=== PATIENT | female | born 1950 | race Two or more races ===

== ENCOUNTER 2017-03-22 06:43 | Outpatient (CLI) | payer MEDICARE, OTHER ==
[2017-03-22 08:17] LABS: BASOPHILS % (AUTO) 1.5 % (0.0-2.0); EOSINOPHILS % (AUTO) 1.6 % (0.0-3.0); LYMPHOCYTES % (AUTO) 28.4 % (20.0-45.0); MEAN CORPUSCULAR HEMOGLOBIN 30.4 PG (27.0-31.0); MEAN CORPUSCULAR HGB CONC 32.4 G/DL (32.0-36.0); MEAN CORPUSCULAR VOLUME 94 FL (80-99); MEAN PLATELET VOLUME 7.4 FL (6.5-10.1); MONOCYTES % (AUTO) 7.6 % (1.0-10.0); NEUTROPHILS % (AUTO) 60.9 % (45.0-75.0); PLATELET COUNT 253 K/UL (150-450); RED BLOOD COUNT 5.75 M/UL (4.20-5.40); RED CELL DISTRIBUTION WIDTH 12.7 % (11.6-14.8); WHITE BLOOD COUNT 7.2 K/UL (4.8-10.8)
[2017-03-22 08:23] LABS: APPEARANCE,URINE CLEAR; KETONES,URINE NEGATIVE (NEGATIVE); LEUKOCYTE ESTERASE ,URINE NEGATIVE (NEGATIVE); NITRITE,URINE NEGATIVE (NEGATIVE); PH,URINE 5 (4.5-8.0); PROTEIN,URINE NEGATIVE (NEGATIVE); UROBILINOGEN,URINE NORMAL MG/DL (0.0-1.0)
[2017-03-22 08:29] LABS: BACTERIA,URINE FEW /HPF; MUCUS,URINE FEW /LPF (NONE/OCC); RBC,URINE 0-2 /HPF (0 - 2); SQUAMOUS EPITHELIAL CELL,UR FEW /LPF (NONE/OCC); WBC,URINE 0-2 /HPF (0 - 2)
[2017-03-22 08:44] LABS: ALANINE AMINOTRANSFERASE 19 U/L (3-33); ALBUMIN/GLOBULIN RATIO 1.5 (1.0-2.7); ANION GAP 13 (5-15); ASPARTATE AMINO TRANSFERASE 20 U/L (5-40); CALCIUM 9.6 mg/dL (8.6-10.2); CARBON DIOXIDE 26 mEQ/L (20-30); CHLORIDE 101 mEQ/L (98-107); CHOLESTEROL 188 mg/dL (< 200); CHOLESTEROL/HDL RATIO 3.2 (3.3-4.4); CREATININE 0.6 mg/dL (0.5-0.9); CRP QUANT < 0.3 mg/dL (< 0.5); GLOMERULAR FILTRATION RATE > 60 mL/min (>60); HEMOLYSIS 9; LDL CHOLESTEROL (CALC.) 105 mg/dL (60-99); POTASSIUM 4.3 mEQ/L (3.4-4.9); SODIUM 140 mEQ/L (135-145)
[2017-03-22 08:47] LABS: HEMOGLOBIN A1C 5.7 % (< 6.0)
[2017-03-22 09:12] LABS: URIC ACID 5.3 mg/dL (3.0-7.5)
[2017-03-22 09:24] LABS: ERYTHROCYTE SEDIMENTATION RATE 5 MM/HR (0-30)
== END 2017-03-22 08:43 | disposition home or self-care (01) ==
LOC: LAB 06:43 → EDBD 06:43 → LAB 08:43
DX: R03.0 Elevated blood-pressure reading, without diagnosis of hypertension (principal); E34.9 Endocrine disorder, unspecified
CPT/HCPCS: 36415; 80053; 80061; 81001; 82306; 83036; 84436; 84443; 84550; 85025; 85651; 86140

== ENCOUNTER → 2019-02-10 | Outpatient (CLI) | payer MEDICARE, MEDICAID ==
[2019-02-10 13:08] LABS: ANION GAP 9 mmol/L (5-15); BLOOD UREA NITROGEN 18 mg/dL (7-18); CALCIUM 9.4 MG/DL (8.5-10.1); CARBON DIOXIDE 32 MMOL/L (21-32); CHLORIDE 102 MMOL/L (98-107); CREATININE 0.6 MG/DL (0.55-1.30); POTASSIUM 4.2 MMOL/L (3.5-5.1); SODIUM 143 MMOL/L (136-145)
--- NOTE | 2019-02-10 16:13 | Diagnostic Imaging Report ---
Clinical Indication: Abdominal pain Technique: Patient given oral contrast. IV administration nonionic contrast. Venous phase spiral acquisition obtained through the abdomen and pelvis. Multiplanar reconstructions were generated. Total dose length product 839 mGycm. CTDIvol(s) 18.6 mGy. Dose reduction achieved using automated exposure control Comparison: none Findings: There is a midline incision. Just above the level of the umbilicus an just lateral to midline, there is a ventral hernia through the rectus tendon which contains a knuckle of transverse colon. The cecum is somewhat prominent in caliber. The remainder of the colon proximal to the hernia is not dilated. There is very slight infiltration of the fat within the hernia sac, but no colon wall dilatation to suggest strangulation. In the cecum is located high in the abdomen, anterior to the gallbladder. A few tiny ventral hernias are seen cephalad to the larger hernia and contain only fat. One or more tiny fat-containing ventral hernias are also seen caudad to the larger hernia and contain only fat. The inferior rectus tendon is diastatic without marty herniation. No small bowel distention. Contrast is seen throughout the entirety of the small bowel and reaches the cecum. Some small bowel is interposed between the abdominal wall and the anterior inferior right hepatic lobe. There are equivocal small colonic diverticula. No evidence of diverticulitis. The appendix is not visualized, reportedly surgically absent. Somewhat prominent nodes are seen in the pericecal mesenteric fat. The distal esophagus, stomach, duodenum are unremarkable. There is suggestion of thickening of the perineal soft tissue posterior to the anus. This could in part be artifactual as there is a pronounced posterior orientation of the canal. There is also skin thickening of the retrococcygeal skin and infiltration of the subcutaneous fat. No evidence of osseous erosion. The liver, gallbladder, bile ducts, pancreas, adrenals, spleen are all unremarkable. The kidneys demonstrate bilateral parapelvic cysts. No retroperitoneal or mesenteric mass or adenopathy. No pelvic mass or adenopathy. Unremarkable aorta and inferior vena cava. There is marked fusiform ectasia of the celiac axis just beyond its origin. It measures up to 16 mm diameter. This may be due to is poststenotic dilatation as there is evidence of some origin stenosis. Linear bands of atelectasis and/or scarring are seen at the lung bases. There are mild degenerative changes of the lumbosacral spine. Impression: Right-sided para midline ventral hernia containing a knuckle of the transverse colon. No definite evidence of strangulation or obstruction Other small ventral hernia is noted, contain only fat. There is also diastasis of the inferior rectus tendon without marty herniation Nonvisualized appendix, reportedly surgically absent Possible perianal soft tissue thickening, if real could indicate scarring or inflammatory changes. Correlate with clinical findings Possible mild retrococcygeal decubitus changes. Correlate with clinical findings Colonic diverticulosis. No evidence of diverticulitis Marked ectasia of the celiac axis. Suspect on the basis of poststenotic dilatation related to origin stenosis Other findings as noted, including degenerative lumbosacral spondylosis, basilar pulmonary parenchymal scarring or atelectatic changes Findings discussed by phone with Dr. Allen at the time of interpretation The CT scanner at [facility] is accredited by the [employer] and the scans are performed using protocols designed to limit radiation exposure to as low as reasonably achievable to attain images of sufficient resolution adequate for diagnostic evaluation.
== END | disposition home or self-care (01) ==
LOC: CAT 11:55
DX: K46.9 Unspecified abdominal hernia without obstruction or gangrene (principal); K57.90 Diverticulosis of intestine, part unspecified, without perforation or abscess without bleeding; M47.9 Spondylosis, unspecified
CPT/HCPCS: 36415; 74177; 80048; Q9967

== ENCOUNTER 2019-03-14 09:23 | Day surgery (SDC) | payer MEDICARE, MEDICAID ==
[~2019-03-14] VITALS: Ht 157.5 cm; Wt 77.1 kg
[2019-03-14] VITALS (12 sets, daily range): BP systolic 104–160; BP diastolic 75–119
[2019-03-14] MEDS ORDERED: GABAPENTIN300 MG ORAL (10:08)
[2019-03-14] MEDS ORDERED: CRESTOR10 M2 ORAL (10:08)
[2019-03-14] MEDS ORDERED: Bacitracin 50000 Units Vial ONE (10:14)
[2019-03-14] MEDS ORDERED: fentaNYL 100 mcg/2 mL IV ONE (10:18)
[2019-03-14] MEDS ORDERED: Zemuron 50mg/5ml Inj IV ONE (10:25)
[2019-03-14] MEDS ORDERED: Succinylcholine 20mg/ml 10ml vial ONE (10:25)
--- NOTE | 2019-03-14 10:25 | Pre-Procedure Note/Attestation ---
Pre-Procedure Note/Attestation Complete Prior to Procedure Planned Procedure: not applicable Procedure Narrative: laparoscopic possible open ventral hernia repair with mesh Indications for Procedure Pre-Operative Diagnosis: incisional ventral hernia Attestation I attest that I discussed the nature of the procedure; its benefits; risks and complications; and alternatives (and the risks and benefits of such alternatives ), prior to the procedure, with the patient (or the patient's legal dental sales representative). I attest that, if there was a reasonable possibility of needing a blood transfusion, the patient (or the patient's legal dental sales representative) was given the [facility] standardized written summary, pursuant to the [place] Blood Safety Act ([place] Health and Safety Code # 1645, as amended). I attest that I re-evaluated the patient just prior to the surgery and that there has been no change in the patient's H&P, except as documented below: Toribio Allen Mar 14, 2019 10:25
[2019-03-14] MEDS ORDERED: Propofol 200mg/20ml IV ONE ×2 (10:30→13:04)
[2019-03-14] MEDS ORDERED: Lidocaine 1% MPF 10mg/ml 5ml ONE (10:30)
[2019-03-14] MEDS ORDERED: ceFAZolin sod 2 GM in D5W 110 ML IV ONE (10:30)
[2019-03-14] MEDS ORDERED: Sterile Water Irrig 1000ml IRRIG ONE (11:00)
[2019-03-14] MEDS ORDERED: NS Irrig 2000ml IRRIG ONE (11:00)
[2019-03-14] MEDS ORDERED: Metoprolol 5mg/5ml Inj ONE (11:00)
[2019-03-14] MEDS ORDERED: Ketorolac 30mg Inj ONE (11:00)
[2019-03-14] MEDS ORDERED: NS Irrig 1000ml ONE (11:00)
[2019-03-14] MEDS ORDERED: NS Irrig 4000ml IRRIG ONE (11:02)
[2019-03-14] MEDS ORDERED: LR 1000ml 1,000 ML IVLG SCH (11:38)
--- NOTE | 2019-03-14 11:38 | Anethesia Preoperative Eval ---
Anesthesia Pre-op PMH/ROS General Date of Evaluation: Mar 14, 2019 Time of Evaluation: 10:40 Anesthesiologist: Tobin ASA Score: ASA 2 Mallampati Score Class I : Soft palate, uvula, fauces, pillars visible Class II: Soft palate, uvula, fauces visible Class III: Soft palate, base of uvula visible Class IV: Only hard plate visible Mallampati Classification: Class II Surgeon: Danya Diagnosis: Ventral hernia Surgical Procedure: Ventral hernia repair Anesthesia History: none Family History: no anesthesia problems Allergies: Coded Allergies: No Known Allergies (Unverified , 03/14/19) Medications: see eMAR Patient NPO?: Yes Past Medical History Cardiovascular: Reports: HTN - Borderline; Denies: CAD, NH, valve dz, arrhythmia, other Pulmonary: Denies: asthma, COPD, MAY, other Gastrointestinal/Genitourinary: Reports: GERD; Denies: CRI, ESRD, other Neurologic/Psychiatric: Reports: depression/anxiety, other; Denies: dementia, CVA, TIA Endocrine: Reports: DM - borderline; Denies: hypothyroidism, steroids, other HEENT: Reports: cataract (L), cataract (R); Denies: glaucoma, PALA (L), PALA (R), other Hematology/Immune: Denies: anemia, DVT, bleeding disorder, other Musculoskeletal/Integumentary: Denies: OA, RA, DJD, DDD, edema, other Other: other PMH Narrative: as above PSxH Narrative: x 3, appendectomy and repair of VC rupture Anesthesia Pre-op Phys. Exam Physician Exam Last Vital Signs Date Time Temp Pulse Resp B/P (MAP) Pulse Ox O2 Delivery O2 Flow Rate FiO2 03/14/19 10:11 Room Air 03/14/19 09:53 98.2 89 18 140/109 96 Constitutional: NAD Neurologic: CN 2-12 intact Cardiovascular: RRR, no M/R/G Respiratory: CTA Gastrointestinal: other - obesity Airway Exam Mallampati Score: Class II MO: limited Neck: short ROM: limited Teeth: intact Dentures: no upper, no lower Anesthesia Pre-op A/P Labs see chart Risk Assessment & Plan Assessment: ASA 2 Plan: GA with ETT Status Change Before Surgery: No Pre-Antibiotics Drug: Ancef 1gr. Given Within 1 Hr of Incision: Yes Time Given: 11:10 Vakulenko,Jarrett MD Mar 14, 2019 11:38
[2019-03-14] MEDS ORDERED: Morphine Sulfate 10mg/ml Inj ONE (11:44)
[2019-03-14] MEDS ORDERED: Glycopyrrolate 0.2mg/ml 1ml Vial ONE (11:45)
[2019-03-14] MEDS ORDERED: Ketorolac 30mg Inj IV PRN (11:45)
[2019-03-14] MEDS ORDERED: Hydromorphone 0.5mg/0.5ml inj IVP PRN (11:45)
[2019-03-14] MEDS ORDERED: Sodium Chloride 10ml vial INJ ONE (11:45)
[2019-03-14] MEDS ORDERED: Labetalol 5mg/ml 20ml vial IV ONE (13:32)
[2019-03-14] MEDS ORDERED: Labetalol 5mg/ml 20ml vial IV SCH (13:38)
--- NOTE | 2019-03-14 13:39 | Immediate Post-Op Evaluation ---
Immediate Post-Op Evalulation Immediate Post-Op Evalulation Procedure: Laparoscopic ventral hernia repair Date of Evaluation: Mar 14, 2019 Time of Evaluation: 13:38 IV Fluids: 1000 Blood Products: none Estimated Blood Loss: 100 Urinary Output: none Blood Pressure Systolic: 123 Blood Pressure Diastolic: 88 Pulse Rate: 86 Respiratory Rate: 22 O2 Sat by Pulse Oximetry: 99 Temperature (Fahrenheit): 97.8 Pain Score (1-10): 2 Nausea: No Vomiting: No Complications none Patient Status: reacts, patent, extubated, none Hydration Status: adequate Jarrett Rudd MD Mar 14, 2019 13:39
--- NOTE | 2019-03-14 14:17 | 48 Hour Post Anesthesia Eval ---
Post Anesthesia Evaluation Procedure: Laparoscopic ventral hernia repair Date of Evaluation: Mar 14, 2019 Time of Evaluation: 14:16 Blood Pressure Systolic: 112 0: 82 Pulse Rate: 76 Respiratory Rate: 20 Temperature (Fahrenheit): 97.8 O2 Sat by Pulse Oximetry: 98 Airway: patent Nausea: No Vomiting: No Pain Intensity: 2 Hydration Status: adequate Cardiopulmonary Status: stable Mental Status/LOC: patient returned to baseline Follow-up Care/Observations: n/a Post-Anesthesia Complications: none Follow-up care needed: ready to discharge Jarrett Rudd MD Mar 14, 2019 14:17
--- NOTE | 2019-03-14 15:31 | Brief Operative Note ---
Immediate Post Operative Note Operative Note Pre-op Diagnosis: incisional ventral hernia Procedure: laparoscopic ventral hernia repair with mesh Post-op Diagnosis: same as pre-op Surgeon: jena Anesthesiologist: alcon Anesthesia: general, local Specimen: yes Complications: none Condition: stable Fluids: see records Estimated Blood Loss: minimal Implant(s) used?: Yes Toribio Allen Mar 14, 2019 15:31
[2019-03-14] MEDS ORDERED: Tylenol #3 tab (300mg/30mg) ORAL PRN (15:45)
[2019-03-14] MEDS ORDERED: HYDROcodone/Acetamin 5/325 tab ORAL PRN (15:45)
[2019-03-14] MEDS ORDERED: HYDROmorphone 1mg/ml Carpuject SUBQ PRN (15:45)
[2019-03-14] MEDS ORDERED: D5 1/2NS 1,000 ML IV SCH (17:00)
--- NOTE | 2019-03-14 19:00 | Operative Note - Dictated ---
DATE OF OPERATION: 03/14/2019 PREOPERATIVE DIAGNOSIS: Incisional ventral hernia. POSTOPERATIVE DIAGNOSIS: Multiple incisional ventral hernias with significant adhesions and "Turkish cheese" abdominal wall. OPERATION PERFORMED: 1. Laparoscopic ventral incisional hernia repair with mesh. 2. Extensive laparoscopic lysis of adhesions. 3. Right rectus musculocutaneous flap. 4. Localized adjacent tissue transfer for closure of hernia defect. ATTENDING SURGEON: Toribio Allen M.D. TRAFFIC RATE COMPUTER: None. ANESTHESIOLOGIST: Jarrett Rudd M.D. ANESTHESIA: General BUSINESS ASSOCIATE plus local. ESTIMATED BLOOD LOSS: 20 mL. IV FLUIDS: Please see anesthesia records. COMPLICATIONS: None. DRAINS: None. SPECIMENS: Hernia sac sent to pathology for review. IMPLANTS: Mosaic 8 inch x 12 inch laparoscopic mesh, lot number #[id number], reference number #[id number], expiration 05/19/2021. WOUND CLASSIFICATION: Class I. COUNTS: Sponge and needle counts correct x2. ANTIBIOTICS: 2 g Ancef IV given 1 hour prior to cut time. INDICATIONS FOR PROCEDURE: This is a 69-year-old female who was referred to myself by Dr. Nora Rose for evaluation of an incisional ventral hernia that was causing discomfort. 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 She had healed well from that and has been doing okay, but has developed a ventral hernia, which was causing discomfort. The ventral incisional hernia was located above and right lateral to the umbilicus around the area of the midline incision and defect is palpable approximately 3 fingerbreadths in size with reducible bowel contents being identified. The remainder of the abdomen has a midline incision, which is well healed, but the other soft areas noted. As a part of workup, the patient had preoperative clearance by her primary care physician as well as a CT scan, which identified a ventral hernia through the rectus tendon with knuckled transverse colon as well as other small fat containing ventral hernias and an inferior rectus tendon diastasis without marty herniation. These findings were all discussed with the patient in detail and interventions, including surgical and nonsurgical were evaluated and the patient stated it does make her uncomfortable and there are concerns given the size and the bowel in the hernia for incarceration and potential strangulation. Therefore after risks, benefits, and alternatives were discussed, the patient decided to proceed with surgery. Planned surgery is laparoscopic possible open ventral hernia repair with mesh. I have discussed with the patient the potential necessity for both laparoscopic and utilizing open technique as well for reapproximation of large ventral defect as well as mesh utilization of potential flaps if necessary. The patient expressed understanding. Consent was obtained. OPERATIVE NOTE: The patient was taken to the operating room and placed on the operating table in supine position with bilateral arms out. All bony prominences well padded. SCDs were placed. Preoperative time-out taken to identify the patient, procedure, operative staff, and surgical staff. 2 g Ancef IV were given one hour prior to cut time. General anesthesia was induced and the patient was intubated. The abdomen was clipped, prepped, draped in standard surgical fashion. A supraumbilical incision in the midline was made using the patient's prior midline incision. Incision was carried down through the subcutaneous tissue to the fascia where the medial aspect of the incisional hernia defect was noted. A hernia sac was identified. The hernia sac was incised. The abdomen was entered without complication. A 12 mm Kristine trocar was inserted and the abdomen was insufflated to 12 to 15 mmHg. The patient tolerated the insufflation well. Upon insufflating, the diastasis and the ventral hernia was noted. Laparoscope was inserted and the abdomen was inspected. The patient had a large ventral hernia defect with a large sac identified anticipated lateral to the midline on the right side above the umbilicus. There was hernia sac identified in this defect in the rectus tendon. In the remaining of the abdomen in the right upper quadrant, there were not any significant adhesions fortunately. The liver and gallbladder looked otherwise normal. There were adhesions of the omentum throughout the midline from the falciform ligament down to the lower portion of the midline incision. Secondary trocars were placed including beginning with a 5 mm right lower abdomen followed by a 5 mm right upper abdomen followed by a 5 mm left mid abdomen trocar. All trocars placed under direct visualization without complication. Laparoscopic graspers and scissors were used and extensive lysis of adhesions were performed until all the omentum was dissected from the abdominal wall. Once this was completed, a large diastasis was noted at the inferior portion of the midline and multiple Turkish cheese ventral hernias were identified around the area in the midline as well as a large hernia noted prior. Around the superior portion of the incision, there were some small hernias noted as well. The remainder of the abdomen was otherwise unremarkable. At this time, given Turkish cheese abdomen and these operative findings, decision was made to place a large mosaic double-sided laparoscopic mesh. Furthermore, given the size of the defect of the larger hernia in the right lateral rectus, decision was made for musculocutaneous rectus flap to help with closure. At this time, the midline incision was extended and the hernia sac was circumferentially excised out. Hernia sac was sent to pathology for review. The hernia sac was in subcutaneous tissue above the rectus and extending laterally, inferiorly, and superiorly. Once it was excised, the defect remaining needs to be closed as well as the rectus defect. Laterally, a slit was made into the rectus sheath for release followed by inferior release and then slow reapproximation of the rectus muscle as it was mobilized superiorly including the rectus sheath that was freed. I was able to reapproximate the two ends without significant tension utilizing this flap portion of the rectus muscle and tissue. The reapproximation of the rectus fascia and muscle was completed with 2-0 Prolene interrupted sutures. Good repair was identified without tension and satisfactory without any defects. At this time, there was a large defect left in the subcutaneous tissue given the size and location of the prior hernia and sac. At this time, adjacent tissue transfer utilizing the subcutaneous tissue inferiorly was performed where the tissue was slowly mobilized from the rectus sheath and keeping the line with its feeding vessels was mobilized superiorly to cover both the repaired hernia defect as well as the defect. Once this was complete, 3-0 Vicryl sutures were used to tack the mobilized tissue in place. At this time, the skin incision was reapproximated in a two-layer fashion beginning with 3-0 Vicryl dermal sutures followed by 4-0 Monocryl subcuticular interrupted sutures. This incision and wound was closed. A mosaic large rectangular mesh was placed prior to the abdomen with the markings to identify the appropriate positioning right side up and placement. The abdomen was re-insufflated once the hernia defect was reapproximated and inspected, noted good results without complications. At this time, the hernia mesh that was placed prior to the abdomen was positioned appropriately and tacked to the anterior abdominal wall using absorbable Protack sutures. Appropriate positioning of the mesh was noted covering all the hernia defects superiorly, inferiorly, and laterally with good overlap. At this time, we began the conclusion of the procedure. The abdomen was desufflated. Mesh noted to be in good positioning. Pictures were taken. The secondary trocars removed under direct visualization without complication. The remaining 5 mm trocar site incisions were reapproximated using 4-0 Monocryl subcuticular interrupted sutures. The wounds were irrigated, cleansed, and skin glue and Steri-Strips were applied. The patient tolerated the procedure well, was extubated, and taken to the postanesthetic care unit in a stable condition. The patient was seen in the postoperative care unit upon discharge. States she is feeling well and pain well controlled. The patient will be discharged home. She will follow up as outpatient as scheduled. Toribio Allen M.D. DR: JUSTIN JOB#: [id number] CC:
== END 2019-03-14 16:30 | disposition home or self-care (01) ==
LOC: SUR 09:23
DX: K43.0 Incisional hernia with obstruction, without gangrene (principal); I10 Essential (primary) hypertension; K21.9 Gastro-esophageal reflux disease without esophagitis; E11.9 Type 2 diabetes mellitus without complications; F32.9 Major depressive disorder, single episode, unspecified; F41.9 Anxiety disorder, unspecified; Z90.89 Acquired absence of other organs; E66.9 Obesity, unspecified; Z68.31 Body mass index [BMI] 31.0-31.9, adult
CPT/HCPCS: 14000; 49655; 82962; J0330; J0690; J1885; J2270; J2405; J2704; J3010; 94003; 94150

== ENCOUNTER → 2019-04-11 | Outpatient (CLI) | payer MEDICARE, MEDICAID ==
[~2019-04-11] MED LIST: CRESTOR10 M2 ORAL; GABAPENTIN300 MG ORAL
--- NOTE | 2019-04-11 16:02 | Diagnostic Imaging Report ---
ARTERIAL DOPPLER STUDY - RIGHT LOWER EXTREMITY INDICATION: Right leg ischemia. TECHNIQUE: Multiplanar ultrasound examination of the right lower extremity with greyscale and doppler imaging. COMPARISON: CT abdomen and pelvis dated 02/10/2019 FINDINGS: Right common iliac, right superficial femoral, right popliteal, right posterior tibial, right peroneal, and right dorsalis pedis arteries are patent with triphasic waveforms. At the proximal segment of the posterior tibial artery, there is calcified plaque leading to mild (<50%) stenosis. Resting ankle-brachial index for the right leg is 1.0. IMPRESSION: Patent right lower extremity arteries with appropriate waveforms; no hemodynamically significant (>50%) stenosis.
== END | disposition home or self-care (01) ==
LOC: VAS 13:57
DX: I99.8 Other disorder of circulatory system (principal)
CPT/HCPCS: 93926

== ENCOUNTER 2019-09-22 20:34 | Inpatient (IN) | payer MEDICARE, MEDICAID ==
[~2019-09-22] VITALS: Ht 165.1 cm; Wt 76.2 kg
--- NOTE | 2019-09-22 20:45 | NUR ---
ED Nurse Note: PT WALKED IN TO ED WITH TREMOR AND PALENESS. PT STATES SOB WITH ELEVATED BP SINCE 09/19. PT STATES BP AT HOME WAS 200/130. BP AT TRIAGE 137/123. PT HAS DISTENDED RT ABD WITH SURGICAL SCAR. PT C/O BLOATED ABD AND NAUSEA. PT VOMITTED CLEAR EMESIS AT THE BEDSIDE. ERMD ATBEDSIDE, FAMILY AT BEDSIDE. WILL CONTINUE TO MONITOR PATIENT.
[2019-09-22 21:00] VITALS: BP 179/105
--- NOTE | 2019-09-22 21:05 | Emergency Room Report ---
History of Present Illness General Chief Complaint: Dyspnea/Respdistress Source: Patient, Medical Record Present Illness HPI This is a 69-year-old female with multiple medical problem. She has a history of high blood pressure, abdominal aneurysm repair and hernia repair. She presents with chief complaint of nausea vomiting. Onset for the last 3 to 4 days. I will keep anything down. Treichlers anxious. Treichlers short of breath. No diarrhea. Also she said her hernia is getting much bigger. Cramping pain. 5 out of 10. She said her short of breath because she felt anxious. No chest pain. Blood pressure was elevated at home. Systolic was over 200. Allergies: Coded Allergies: No Known Allergies (Unverified , 03/14/19) Patient History Past Medical History: see triage record, old chart reviewed, HTN Past Surgical History: other Pertinent Family History: none Social History: Denies: smoking Now: No Immunizations: other Reviewed Nursing Documentation: PMH: Agreed; PSxH: Agreed Nursing Documentation-PMH Hx Cardiac Problems: Yes Hx Cancer: No Hx Gastrointestinal Problems: Yes - GI surgery February 2019 Hx Neurological Problems: Yes Hx Peripheral Neuropathy: Yes Review of Systems Eye: Denies: eye pain, blurred vision ENT: Denies: ear pain, nose congestion, throat swelling Respiratory: Reports: shortness of breath; Denies: cough Cardiovascular: Denies: chest pain, palpitations Gastrointestinal: Reports: abdominal pain, nausea, vomiting; Denies: diarrhea Musculoskeletal: Denies: back pain, joint pain Skin: Denies: rash Neurological: Denies: headache, numbness Endocrine: Denies: increased thirst, increased urine Hematologic/Lymphatic: Denies: easy bruising All Other Systems: negative except mentioned in HPI Physical Exam Vital Signs Date Time Temp Pulse Resp B/P (MAP) Pulse Ox O2 Delivery O2 Flow Rate FiO2 09/22/19 20:37 97.7 66 13 137/123 (128) 98 Room Air Vitals with high blood pressure Sp02 EP Interpretation: reviewed, normal General Appearance: well appearing, no apparent distress, alert, obese Head: normocephalic, atraumatic Eyes: bilateral eye PERRL, bilateral eye EOMI ENT: hearing grossly normal, normal pharynx Neck: full range of motion, supple, no meningismus Respiratory: chest non-tender, lungs clear, normal breath sounds Cardiovascular #1: regular rate, rhythm, no murmur Gastrointestinal: normal bowel sounds, non tender, no mass, no organomegaly, no bruit, non-distended, other - Large ventral hernia. Reducible Musculoskeletal: back normal, normal range of motion, gait/station normal Psychiatric: mood/affect normal Medical Decision Making Diagnostic Impression: Primary Impression: SBO (small bowel obstruction) Additional Impressions: Hypertension Qualified Codes: I10 - Essential (primary) hypertension Ventral hernia Qualified Codes: K43.6 - Other and unspecified ventral hernia with obstruction , without gangrene Stress reaction ER Course This patient presents with abdominal pain and nausea and vomiting. She has a large ventral hernia that is causing a small bowel obstruction. Is not incarcerated. Was able to reduce it. NG tube placed. IV fluid given. Her blood pressure is elevated because she is unable to take her medication. IV medication given here. Patient is stable for admission here versus transfer. Patient will be admitted here. I discussed the case with Dr. Rose who will admit. Dr. Allen will be surgical consult. EKG Diagnostic Results Rate: normal Rhythm: NSR ST Segments: no acute changes Rhythm Strip Diag. Results Rate: 72 Rhythm: NSR, no PVC's, no ectopy Chest X-Ray Diagnostic Results Chest X-Ray Diagnostic Results : Chest X-Ray Ordered: Yes # of Views/Limited/Complete: 1 View Indication: Shortness of Breath EP Interpretation: Yes Interpretation: no consolidation, no effusion, no pneumothorax, no acute cardiopulmonary disease Impression: No acute disease Electronically Signed by: Ede Garcia MD CT/MRI/US Diagnostic Results CT/MRI/US Diagnostic Results : Imaging Test Ordered: CT abdomen pelvis Impression Read by radiologist. Small bowel obstruction, transition point within the ventral hernia which contains cecum, ileocecal valve and terminal ileum. Last Vital Signs Date Time Temp Pulse Resp B/P (MAP) Pulse Ox O2 Delivery O2 Flow Rate FiO2 09/22/19 20:37 97.7 66 13 137/123 (128) 98 Room Air Status: improved Disposition: ADMITTED INPATIENT Condition: Serious Ede Garcia MD Sep 22, 2019 21:05
[2019-09-22] MEDS ORDERED: LORazepam Inj 2mg/ml 1ml IV ONE (21:15)
[2019-09-22 21:34] LABS: BASOPHILS % (AUTO) 0.8 % (0.0-2.0); EOSINOPHILS % (AUTO) 0.2 % (0.0-3.0); HEMATOCRIT 54.2 % (37.0-47.0); LYMPHOCYTES % (AUTO) 15.8 % (20.0-45.0); MEAN CORPUSCULAR VOLUME 89 FL (80-99); MONOCYTES % (AUTO) 6.4 % (1.0-10.0); NEUTROPHILS % (AUTO) 76.9 % (45.0-75.0); PLATELET COUNT 295 K/UL (150-450); RED BLOOD COUNT 6.08 M/UL (4.20-5.40); RED CELL DISTRIBUTION WIDTH 12.2 % (11.6-14.8); WHITE BLOOD COUNT 14.1 K/UL (4.8-10.8)
[2019-09-22 21:38] LABS: HEMOGLOBIN 17.5 G/DL (12.0-16.0)
--- NOTE | 2019-09-22 21:48 | NUR ---
ED Nurse Note: pt went for ct via wheelchair accompanied by teradata architect in stable condition.
--- NOTE | 2019-09-22 21:53 | Diagnostic Imaging Report ---
EXAM: XR Chest, 1 View CLINICAL HISTORY: SOB TECHNIQUE: Frontal view of the chest. COMPARISON: No relevant prior studies available. FINDINGS: Lungs: Unremarkable. No consolidation. Pleural space: No pleural effusion. No pneumothorax. Heart: Unremarkable. No cardiomegaly. IMPRESSION: No acute cardiopulmonary abnormality.
[2019-09-22 22:00] LABS: APPEARANCE,URINE SLIGHTLY CLOUDY; BILIRUBIN, URINE NEGATIVE (NEGATIVE); COLOR,URINE AMBER; GLUCOSE, URINE (UA) NEGATIVE (NEGATIVE); KETONES,URINE 3+ (NEGATIVE); LEUKOCYTE ESTERASE ,URINE NEGATIVE (NEGATIVE); NITRITE,URINE NEGATIVE (NEGATIVE); PH,URINE 5 (4.5-8.0); PROTEIN,URINE 2+ (NEGATIVE); UROBILINOGEN,URINE NORMAL MG/DL (0.0-1.0)
--- NOTE | 2019-09-22 22:00 | NUR ---
ED Nurse Note: PT BACK FROM CT VIA WHEELCHAIR ACCOMPANIED BY 1 FISH BAILER IN STABLE CONDITION.
[2019-09-22 22:05] LABS: ANION GAP 17 mmol/L (5-15); BLOOD UREA NITROGEN 25 mg/dL (7-18); CALCIUM 10.1 MG/DL (8.5-10.1); CARBON DIOXIDE 24 MMOL/L (21-32); CHLORIDE 101 MMOL/L (98-107); CREATININE 0.9 MG/DL (0.55-1.30); SODIUM 142 MMOL/L (136-145)
--- NOTE | 2019-09-22 22:09 | Diagnostic Imaging Report ---
EXAM: CT Abdomen and Pelvis Without Intravenous Contrast CLINICAL HISTORY: ABD PAIN TECHNIQUE: Axial computed tomography images of the abdomen and pelvis without intravenous contrast. CTDI is 24.2 mGy and DLP is 1302.9 mGy-cm. One or more of the following dose reduction techniques were used: automated exposure control, adjustment of the mA and/or kV according to patient size, use of iterative reconstruction technique. COMPARISON: CT abdomen pelvis 02/10/2019 FINDINGS: Lung bases: Unremarkable. No mass. No consolidation. ABDOMEN: Liver: Unremarkable. Gallbladder and bile ducts: Unremarkable. No calcified stones. No ductal dilation. Pancreas: Unremarkable. No ductal dilation. Spleen: Unremarkable. No splenomegaly. Adrenals: Unremarkable. No mass. Kidneys and ureters: Unremarkable. No obstructing stones. No hydronephrosis. Stomach and bowel: Small bowel obstruction with a transition point of which is within the ventral hernia sac. Distention of the ileum up to 4. 5 cm. No pneumatosis, portal venous gas, or free air. No evidence of strangulation. Colonic diverticulosis without diverticulitis. PELVIS: Appendix: No findings to suggest acute appendicitis. Bladder: Unremarkable. No stones. Reproductive: Unremarkable as visualized. ABDOMEN and PELVIS: Bones/joints: No acute fracture. No dislocation. Soft tissues: Ventral hernia containing the cecum and terminal ileum. Vasculature: Unremarkable. No abdominal aortic aneurysm. Lymph nodes: Unremarkable. No enlarged lymph nodes. IMPRESSION: Small bowel obstruction, transition point within the ventral hernia which contains the cecum, ileocecal valve, and terminal ileum.
[2019-09-22 22:10] LABS: ALANINE AMINOTRANSFERASE 25 U/L (12-78); ALBUMIN 4.3 G/DL (3.4-5.0); ALBUMIN/GLOBULIN RATIO 1.2 (1.0-2.7); ALKALINE PHOSPHATASE 102 U/L (46-116); ASPARTATE AMINO TRANSFERASE 17 U/L (15-37); BILIRUBIN,TOTAL 0.5 MG/DL (0.2-1.0)
--- NOTE | 2019-09-22 22:15 | NUR ---
ED Nurse Note: XR AT BEDSIDE.
--- NOTE | 2019-09-22 23:00 | NUR ---
ED Nurse Note: NG TUBE INSERTED PER ERMD ORDER. PT TOLERATED PROCEDURE WELL. ASPIRATION AND AUSCLETATION VERIFIED INSERTION. GASTRIC DECOMPRESSION WAS VISIBLE WITH BROWNISH SECRETION. TUBE ON LOW INTERMITENT DECOMPRESSION.
--- NOTE | 2019-09-22 23:14 | Diagnostic Imaging Report ---
EXAM: XR Abdomen, 2 Views CLINICAL HISTORY: TUBE PLCMT TECHNIQUE: Frontal view of the abdomen/pelvis with upright view of the abdomen. COMPARISON: Same-day CT abdomen and pelvis. FINDINGS: Intraperitoneal space: No free air. Gastrointestinal tract: Dilated loop of small bowel within the right upper quadrant. Bones/joints: Unremarkable. Tubes, lines and devices: Enteric tube terminates within the stomach. IMPRESSION: Enteric tube terminates within the stomach.
[2019-09-22 23:22] VITALS: BP 167/84
--- NOTE | 2019-09-22 23:30 | NUR ---
ED Nurse Note: GAVE REPORT TO CORBIN OLIVAS FOR 402-2
--- NOTE | 2019-09-22 23:35 | NUR ---
TRANSFER TO FLOOR: Patient transferred to [facility] via [facility] in stable condition accompanied by 1 rn as ordered, per dr. Nora Rose . Report given to Nikolas OLIVAS. Belongings and packet sent with patient.
--- NOTE | 2019-09-22 23:45 | NUR ---
NURSE NOTES: Pt. received from Alcon Scanlon RN. Pt. AAOx4, on room air, currently with nausea and vomiting x2, scant emesis. BP elevated. Complaints of abdominal pain with abdominal distention. No shortness of breath at this time. NG tube right nare intact, clamped at this time IV right AC 20g asymptomatic, intact, and patent; saline locked. Skin intact. Belongings checked and signed. Pt. oriented to room. Bed is low and locked, side rails x2 up, bed alarm active, and call light is in reach. Will call Dr. Rose for admission orders. Will continue to monitor.
--- NOTE | 2019-09-23 | NUR ---
NURSE NOTES: Pt. coughing and sneezing, left room to get more facial tissues and upon return, pt. NG tube dislodged. Pt. stable and not in distress.
[2019-09-23] MEDS ORDERED: dilTIAZem HCl 90mg tab NG ONE (00:30)
[2019-09-23] MEDS ORDERED: Acetaminophen 650mg/20.3ml NG PRN (00:30)
--- NOTE | 2019-09-23 00:30 | NUR ---
NURSE NOTES: Orders to reinsert NG tube received. NG tube placed: 60cm. Placement verified with auscultation. Awaiting xray for placement confirmation. Pt. tolerated insertion. Will continue to monitor.
--- NOTE | 2019-09-23 00:40 | NUR ---
NURSE NOTES: NG tube placement verified.
--- NOTE | 2019-09-23 01:34 | Diagnostic Imaging Report ---
EXAM: XR Abdomen, 2 Views CLINICAL HISTORY: NGT TECHNIQUE: Frontal view of the abdomen/pelvis with upright view of the abdomen. COMPARISON: No relevant prior studies available. FINDINGS: Intraperitoneal space: No free air. Gastrointestinal tract: Unremarkable. No dilation. Bones/joints: Unremarkable. Tubes, lines and devices: Enteric tube terminates within the gastric body. IMPRESSION: Enteric tube terminates within the gastric body.
[2019-09-23] MEDS: Ketorolac 30mg Inj IV PRN (02:06)
[2019-09-23 04:00] VITALS: BP 166/110
--- NOTE | 2019-09-23 07:32 | NUR ---
HAND-OFF: Report given to BRENDON Prieto.
--- NOTE | 2019-09-23 07:32 | NUR ---
NURSE NOTES: Report received from Nikolas OLIVAS. Patient awake and alert x 4 in semi fowlers position in bed. Patient noted to have NG tube suctioning dark brown liquid. Tube secured to nose with use of tape. Patient currently NPO. Patient noted to have a 20 trevor IV in right ac with fluids running per MD orders. Was endorsed by Nikolas OLIVAS that patient was hypertensive and tachycardic when arrive to ED. MD aware. Awaiting further medication orders from primary MD. Bed locked, alarmed, and in lowest position. Call light within reach. Will continue to follow plan of care.
[2019-09-23 08:00] VITALS: BP 131/89
[2019-09-23 08:09] LABS: APPEARANCE,URINE CLEAR; BILIRUBIN, URINE NEGATIVE (NEGATIVE); COLOR,URINE PALE YELLOW; GLUCOSE, URINE (UA) 3+ (NEGATIVE); KETONES,URINE 4+ (NEGATIVE); LEUKOCYTE ESTERASE ,URINE NEGATIVE (NEGATIVE); NITRITE,URINE NEGATIVE (NEGATIVE); PH,URINE 7 (4.5-8.0); PROTEIN,URINE NEGATIVE (NEGATIVE); UROBILINOGEN,URINE NORMAL MG/DL (0.0-1.0)
[2019-09-23] MEDS: Pantoprazole Inj IVP SCH (08:26)
[2019-09-23] MEDS: Heparin 5000 units/ml inj SUBQ SCH ×2 (08:28→20:39)
[2019-09-23 08:38] LABS: HEMATOCRIT 48.4 % (37.0-47.0); HEMOGLOBIN 16.6 G/DL (12.0-16.0); MEAN CORPUSCULAR VOLUME 90 FL (80-99); PLATELET COUNT 285 K/UL (150-450); RED BLOOD COUNT 5.41 M/UL (4.20-5.40); RED CELL DISTRIBUTION WIDTH 12.1 % (11.6-14.8); WHITE BLOOD COUNT 16.1 K/UL (4.8-10.8)
[2019-09-23 09:03] LABS: ALANINE AMINOTRANSFERASE 23 U/L (12-78); ALBUMIN 3.7 G/DL (3.4-5.0); ALKALINE PHOSPHATASE 85 U/L (46-116); ASPARTATE AMINO TRANSFERASE 22 U/L (15-37); BILIRUBIN,DIRECT < 0.1 MG/DL (0.0-0.3); BILIRUBIN,TOTAL 0.3 MG/DL (0.2-1.0)
[2019-09-23 09:15] LABS: AMYLASE 41 U/L (25-115); ANION GAP 13 mmol/L (5-15); BLOOD UREA NITROGEN 16 mg/dL (7-18); CALCIUM 8.6 MG/DL (8.5-10.1); CARBON DIOXIDE 26 MMOL/L (21-32); CHLORIDE 100 MMOL/L (98-107); CREATININE 0.7 MG/DL (0.55-1.30); POTASSIUM 2.9 MMOL/L (3.5-5.1); SODIUM 139 MMOL/L (136-145)
--- NOTE | 2019-09-23 10:04 | Diagnostic Imaging Report ---
EXAM: US Abdomen Complete CLINICAL HISTORY: ABD DIST TECHNIQUE: Real-time ultrasound of the abdomen (complete) with image documentation. COMPARISON: CT abdomen dated 09/22/19 FINDINGS: Liver: Diffusely echogenic liver, suggesting fatty infiltration. Liver diameter 16.6 cm. No visible parenchymal lesions. No intrahepatic biliary ductal dilatation. Gallbladder: Unremarkable. No gallstones. No wall thickening. No pericholecystic fluid. Common bile duct: Common bile duct diameter of 4.7 mm, within normal limits. Pancreas: Unremarkable as visualized. Pancreatic body and tail are obscured by bowel gas. Kidneys: Right kidney length of 11 cm. Left kidney length of 11 cm. Normal cortical thickness. No visible parenchymal lesions. No visible stones. No hydronephrosis. Spleen: Spleen length of 5.7 cm, within normal limits. Aorta: Unremarkable. Visualized portions appear unremarkable without evidence of aneurysm. Distal aorta and bifurcation are obscured by overlying bowel gas. Inferior vena cava: Unremarkable. Free fluid: No free fluid identified. IMPRESSION: 1. No acute findings. 2. Diffusely echogenic liver, suggesting fatty infiltration.
[2019-09-23] MEDS: dilTIAZem HCl 90mg tab ORAL SCH ×2 (11:03→20:43)
--- NOTE | 2019-09-23 11:11 | NUR ---
NURSE NOTES: NG tube removed by Doctor Tamie. Will continue to follow plan of care.
--- NOTE | 2019-09-23 11:35 | Diagnostic Imaging Report ---
EXAM: XR Abdomen, 2 Views CLINICAL HISTORY: ABD DIST TECHNIQUE: Frontal view of the abdomen/pelvis with upright view of the abdomen. COMPARISON: Abdominal x-ray and ultrasound obtained earlier the same date FINDINGS: Lower thorax: Lung bases appear clear. Intraperitoneal space: No evidence of intraperitoneal free air. Gastrointestinal tract: Unremarkable bowel gas pattern. No luminal air- fluid levels seen. No evidence of pneumatosis intestinalis. Organs: Renal shadows are partially obscured by overlying bowel gas. No abnormal calcification seen in the abdomen or pelvis. No organomegaly. No evidence of portal venous gas. Bones/joints: Unremarkable. Tubes, lines and devices: Interval removal of the previously noted nasogastric tube. IMPRESSION: No acute findings.
--- NOTE | 2019-09-23 11:59 | Consultation ---
History of Present Illness General Date patient seen: Sep 23, 2019 Reason for Hospitalization: Dyspnea/Respdistress Present Illness HPI 69F well known to me from prior surgery and outpatient f/u visits presented with 3-4 days of abdominal discomfort and n/v. states has been feeling unwell and began having non bloody emesis. decreased bowel function recently. felt hernia but thought it would get better. came to ED for evaluation and had CT demonstrating sbo 2/2 to ventral hernia. admitted for care and management. surgery called to evaluate and assist with care. Allergies: Coded Allergies: No Known Allergies (Unverified , 03/14/19) Medication History Scheduled Gabapentin* (Gabapentin*), 300 MG ORAL BID, (Reported) Rosuvastatin Calcium* (Crestor*), 10 MG ORAL DAILY, (Reported) Patient History History Provided By: Patient, Medical Record, PMD Healthcare decision maker Resuscitation status Full Code Advanced Directive on File Past Medical/Surgical History Past Medical/Surgical History: (1) Ventral hernia (2) Hypertension (3) Stress reaction (4) SBO (small bowel obstruction) Review of Systems Review of Symptoms General ROS: no weight loss or fever Psychological ROS: no depression or mood changes, no memory loss Ophthalmic ROS: no visual changes or eye irritation ENT ROS: no nasal congestion, hearing loss, dizziness Allergy and Immunology ROS: no allergic symptoms or urticaria Hematological and Lymphatic ROS: no swollen glands, unusual bleeding or bruising Endocrine ROS: no polyuria, polydipsia, weight changes, temperature intolerance Respiratory ROS: no cough, shortness of breath, or wheezing Cardiovascular ROS: no chest pain or dyspnea on exertion Gastrointestinal ROS: abdominal pain, no bright red blood in stool. Musculoskeletal ROS: no myalgias or arthralgias Neurological ROS: no TIA or stroke symptoms Dermatological ROS: no new or changing skin lesions, rashes or pruritis Physical Exam Physical Exam General appearance: alert, cooperative, no distress, appears stated age Head: Normocephalic, without obvious abnormality, atraumatic Eyes: conjunctivae/corneas clear. PERRL, EOM's intact. Fundi benign Throat: Lips, mucosa, and tongue normal. Teeth and gums normal Neck: supple, symmetrical, trachea midline, no adenopathy, thyroid: not enlarged, symmetric, no tenderness/mass/nodules, no carotid bruit and no JVD Lungs: clear to auscultation bilaterally Heart: regular rate and rhythm, S1, S2 normal, no murmur, click, rub or gallop Abdomen: soft, non-tender. Bowel sounds decreased. No masses, no organomegaly reducible right mid abd ventral hernia Extremities: extremities normal, atraumatic, no cyanosis or edema Pulses: 2+ and symmetric Skin: Skin color, texture, turgor normal. No rashes or lesions Neurologic: Grossly normal Last 24 Hour Vital Signs Date Time Temp Pulse Resp B/P (MAP) Pulse Ox O2 Delivery O2 Flow Rate FiO2 09/23/19 11:03 99 131/89 09/23/19 09:00 Room Air 09/23/19 08:00 98.4 95 20 131/89 (103) 94 09/23/19 04:00 97.8 115 21 166/110 (128) 97 09/23/19 02:36 97.8 09/23/19 02:06 117 149/92 09/23/19 01:04 Room Air 09/22/19 23:35 97.8 75 20 167/84 98 Room Air 98 09/22/19 23:22 98.1 81 20 167/84 98 Room Air 98 09/22/19 23:15 184/96 09/22/19 22:41 179/105 09/22/19 21:00 68 15 Room Air 98 09/22/19 21:00 97.9 68 15 179/105 98 Room Air 09/22/19 20:37 97.7 66 13 137/123 (128) 98 Room Air Intake and Output 09/22/19 09/23/19 19:00 07:00 Intake Total 1500 ml Balance 1500 ml Intake Oral 0 ml IV Total 1500 ml # Voids 2 # Bowel Movements 2 Laboratory Tests Test 09/22/19 20:55 09/22/19 21:40 09/23/19 06:10 09/23/19 07:00 White Blood Count 14.1 K/UL (4.8-10.8) H 16.1 K/UL (4.8-10.8) H Red Blood Count 6.08 M/UL (4.20-5.40) H 5.41 M/UL (4.20-5.40) H Hemoglobin 17.5 G/DL (12.0-16.0) H 16.6 G/DL (12.0-16.0) H Hematocrit 54.2 % (37.0-47.0) H 48.4 % (37.0-47.0) H Mean Corpuscular Volume 89 FL (80-99) 90 FL (80-99) Mean Corpuscular Hemoglobin 29.8 PG (27.0-31.0) 30.7 PG (27.0-31.0) Mean Corpuscular Hemoglobin Concent 33.4 G/DL (32.0-36.0) 34.3 G/DL (32.0-36.0) Red Cell Distribution Width 12.2 % (11.6-14.8) 12.1 % (11.6-14.8) Platelet Count 295 K/UL (150-450) 285 K/UL (150-450) Mean Platelet Volume 6.5 FL (6.5-10.1) 6.3 FL (6.5-10.1) L Neutrophils (%) (Auto) 76.9 % (45.0-75.0) H % (45.0-75.0) Lymphocytes (%) (Auto) 15.8 % (20.0-45.0) L % (20.0-45.0) Monocytes (%) (Auto) 6.4 % (1.0-10.0) % (1.0-10.0) Eosinophils (%) (Auto) 0.2 % (0.0-3.0) % (0.0-3.0) Basophils (%) (Auto) 0.8 % (0.0-2.0) % (0.0-2.0) Sodium Level 142 MMOL/L (136-145) 139 MMOL/L (136-145) Potassium Level 4.0 MMOL/L (3.5-5.1) 2.9 MMOL/L (3.5-5.1) L Chloride Level 101 MMOL/L (98-107) 100 MMOL/L (98-107) Carbon Dioxide Level 24 MMOL/L (21-32) 26 MMOL/L (21-32) Anion Gap 17 mmol/L (5-15) H 13 mmol/L (5-15) Blood Urea Nitrogen 25 mg/dL (7-18) H 16 mg/dL (7-18) Creatinine 0.9 MG/DL (0.55-1.30) 0.7 MG/DL (0.55-1.30) Estimat Glomerular Filtration Rate > 60 mL/min (>60) > 60 mL/min (>60) Glucose Level 178 MG/DL (74-106) H 146 MG/DL (74-106) H Calcium Level 10.1 MG/DL (8.5-10.1) 8.6 MG/DL (8.5-10.1) Total Bilirubin 0.5 MG/DL (0.2-1.0) 0.3 MG/DL (0.2-1.0) Aspartate Amino Transf (AST/SGOT) 17 U/L (15-37) 22 U/L (15-37) Alanine Aminotransferase (ALT/SGPT) 25 U/L (12-78) 23 U/L (12-78) Alkaline Phosphatase 102 U/L (46-116) 85 U/L (46-116) Troponin I 0.006 ng/mL (0.000-0.056) Pro-B-Type Natriuretic Peptide 104 pg/mL (0-125) Total Protein 7.8 G/DL (6.4-8.2) 7.0 G/DL (6.4-8.2) Albumin 4.3 G/DL (3.4-5.0) 3.7 G/DL (3.4-5.0) Globulin 3.5 g/dL Albumin/Globulin Ratio 1.2 (1.0-2.7) Lipase 120 U/L (73-393) 194 U/L (73-393) Urine Color Kya Pale yellow Urine Appearance Slightly cloudy Clear Urine pH 5 (4.5-8.0) 7 (4.5-8.0) Urine Specific [place] 1.025 (1.005-1.035) 1.010 (1.005-1.035) Urine Protein 2+ (NEGATIVE) H Negative (NEGATIVE) Urine Glucose (UA) Negative (NEGATIVE) 3+ (NEGATIVE) H Urine Ketones 3+ (NEGATIVE) H 4+ (NEGATIVE) H Urine Blood 2+ (NEGATIVE) H 1+ (NEGATIVE) H Urine Nitrite Negative (NEGATIVE) Negative (NEGATIVE) Urine Bilirubin Negative (NEGATIVE) Negative (NEGATIVE) Urine Ictotest Negative (NEGATIVE) Urine Urobilinogen Normal MG/DL (0.0-1.0) Normal MG/DL (0.0-1.0) Urine Leukocyte Esterase Negative (NEGATIVE) Negative (NEGATIVE) Urine RBC 2-4 /HPF (0 - 2) H 0-2 /HPF (0 - 2) Urine WBC 0-2 /HPF (0 - 2) 0-2 /HPF (0 - 2) Urine Squamous Epithelial Cells Moderate /LPF (NONE/OCC) H Few /LPF (NONE/OCC) Urine Bacteria Few /HPF (NONE) Occasional /HPF (NONE) Differential Total Cells Counted 100 Neutrophils % (Manual) 92 % (45-75) H Lymphocytes % (Manual) 6 % (20-45) L Monocytes % (Manual) 2 % (1-10) Eosinophils % (Manual) 0 % (0-3) Basophils % (Manual) 0 % (0-2) Band Neutrophils 0 % (0-8) Platelet Estimate Adequate Platelet Morphology Normal Red Blood Cell Morphology Normal Direct Bilirubin < 0.1 MG/DL (0.0-0.3) Amylase Level 41 U/L (25-115) Height (Feet): 5 Height (Inches): 6.00 Weight (Pounds): 160 Medications Current Medications Medications (Trade) Dose Ordered Sig/Smita Route PRN Reason Start Time Stop Time Status Last Admin Dose Admin Acetaminophen (Tylenol) 650 mg Q4H PRN NG Mild Pain (Pain Scale 1-3) 09/23/19 00:30 10/23/19 00:29 Dextrose 1,000 ml @ 100 mls/hr Q10H IV 09/23/19 00:30 10/23/19 00:29 09/23/19 10:30 Diltiazem HCl (Cardizem) 90 mg Q12HR ORAL 09/23/19 10:45 10/23/19 10:44 09/23/19 11:03 Heparin Sodium (Porcine) (Heparin 5000 units/ml) 5,000 units EVERY 12 HOURS SUBQ 09/23/19 09:00 10/23/19 08:59 09/23/19 08:28 Ketorolac Tromethamine (Toradol 30mg) 15 mg Q6H PRN IV Moderate Pain (Pain Scale 4-6) 09/23/19 00:30 09/28/19 00:29 09/23/19 02:06 Ondansetron HCl (Zofran) 4 mg Q4H PRN IVP Nausea & Vomiting 09/23/19 00:30 10/23/19 00:29 09/23/19 11:03 Pantoprazole (Protonix) 40 mg DAILY IVP 09/23/19 09:00 10/23/19 08:59 09/23/19 08:26 Potassium Chloride (K-Dur) 40 meq ONCE ORAL 09/23/19 10:45 09/23/19 12:00 09/23/19 11:03 Assessment/Plan Problem List: (1) SBO (small bowel obstruction) Assessment & Plan: 69F with hx of incisional ventral hernia and malawian cheese abdomen s/p lap ventral hernia repair with mesh presented with recurrent ventral incisional hernia with obstruction IMPRESSION: Small bowel obstruction, transition point within the ventral hernia which contains the cecum, ileocecal valve, and terminal ileum. fortunately was able to reduce at bedside 4cm x 3cm defect right of midline mid abdomen palpable with reducible bowel start clears will follow with exam thank you ICD Codes: K56.609 - Unspecified intestinal obstruction, unspecified as to partial versus complete obstruction SNOMED: 524842546 (2) Ventral hernia ICD Codes: K43.9 - Ventral hernia without obstruction or gangrene SNOMED: 181190077 Qualifiers: Qualified Codes: K43.6 - Other and unspecified ventral hernia with obstruction, without gangrene Toribio Allen Sep 23, 2019 11:59
[2019-09-23 12:00] VITALS: BP 149/97
[2019-09-23 16:00] VITALS: BP 111/77
--- NOTE | 2019-09-23 16:30 | NUR ---
CASE MANAGEMENT: REVIEW 69 YEAR OLD FEMALE PRESENTED TO ED FROM HOME CC: SOB . N/V . ELEVATED BP 20/130 . HX ABD HERNIA & ANEURYSM REPAIR SI: SBO . VENTRAL HERNIA . HTN T 97.9 HR 66 RR 13 BP 179/105 SAT 98% ROOM AIR WBC 14.1 H/H 17.5/54.2 GLUCOSE 178 IS: NS IVF BOLUS X1 ATIVAN 0.5MG IV X1 ZOFRAN 4MG IV X1 HYDRALAZINE 20MG IV X1 @ 22:41 HYDRALAZINE 20MG IV X1 @ 23:15 PATIENT ADMITTED TO MED/SURG UNIT 09/22/2019 DCP: PATIENT IS FROM HOME
--- NOTE | 2019-09-23 19:48 | NUR ---
HAND-OFF: Report given to Radha OLIVAS.
[2019-09-23 20:00] VITALS: BP 137/88
--- NOTE | 2019-09-23 20:00 | NUR ---
NURSE NOTES: Patient received in bed asleep, arousable. No acute distress at this time, c/o mild headache. IV intact. No nausea at this time. Pt stated only nauseous if drinking fluids. Ice chip provided. Call light in reach. WIll continue t o monitor.
--- NOTE | 2019-09-23 22:45 | History and Physical Report ---
DATE OF ADMISSION: 09/22/2019 REASON FOR ADMISSION: This is the first admission to [facility] of this 69-year-old lady because of intestinal obstruction. HISTORY OF PRESENT ILLNESS: The patient is a resident of [facility], but an [place] citizen, who was operated in this hospital several months ago because of a midline hernia. Surgery was successful and the patient tolerated the procedure well. She was able to eat and to travel extensively since the surgery. Three days prior to the present admission, developed severe abdominal pain at the site of the surgery associated with nausea and vomiting without any diarrhea. She did not seek any medical advice until yesterday, but her abdomen became progressively distended. She was brought to [facility] ER and was admitted. PAST MEDICAL HISTORY: Less than 6 weeks ago, the patient was diagnosed having acute PA in [place] for which she was admitted 3 days in the intensive care unit. She has high blood pressure for many years. MEDICATIONS: She has been prior to this on aspirin 81 mg daily and atorvastatin 10 mg daily. FAMILY HISTORY: Mother from [place] of the colon and father from acute PA. She has 1 brother who from [place] of the pancreas. She has 2 sisters in good health with high blood pressure and diabetes mellitus. She has 2 children in good health. SOCIAL HISTORY: She is . She was born in [place]. She is retired now for more than 10 years. HABITS: The patient did not smoke, drink, or use illicit drugs. REVIEW OF SYSTEMS: CARDIOVASCULAR: The patient denied any chest pain, shortness of breath, palpitations, or dizziness. PULMONARY: The patient denied any cough, wheezing, or expectoration. GASTROINTESTINAL: Appetite is poor now. Her weight is stable. Dysphagia and dyspepsia were described previously. GENITOURINARY: The patient denies any dysuria, frequency, incontinence, or nocturia. JOINT: The patient denied pain, swelling, stiffness, cold extremities, photosensitivity, dry eyes, or alopecia. She does have low back pain for which she has an appointment with a neurologist. MANAGER INTENSIVE CARE: Her sleep until the last few days ago was of good quality. She has no numbness, tingling, seizure disorder, and has no headache. PHYSICAL EXAMINATION: VITAL SIGNS: Blood pressure 179/105, went up to 184/96, pulse is 81, respirations 20, and temperature 98.1. HEENT: Eyes were normal. Pupils were round, equal, and reactive to light. Sclerae were white. Conjunctivae were pink. Extraocular movements were normal. Temporal arteries were palpable bilaterally. There was no bilateral temporal wasting. Visual vaughan to confrontation were normal and neglect sign was negative. ENT, mucous membranes were not dehydrated. Auditory canals were clear and tympanic membranes could not be visualized. Nasal cavity was not congested. Nasal septum was intact. Soft palate was free of ulcerations. Pharynx was clear from exudate or tonsillar hypertrophy. Uvula twan to phonation. Tongue was moist, midline, and normally papillated. NECK: Supple. There was no goiter. No mass. No lymphadenopathy. There was no JVD. No bruits. Carotid upstroke was 2+. LUNGS: Clear. HEART: PMI was fifth left intercostal space in midclavicular line. There was normal S1 and normal S2. There was no murmur. No arrhythmia. No S3. No S4. No pericardial rub. ABDOMEN: Soft and nontender without organomegaly. There were no masses palpable. Normal bowel sounds without bruit. There was no guarding. No rebound tenderness. No ascites. No hernia. No CVA tenderness. Liver span was 8 cm, mostly nontender. The abdomen is moderately distended, however, palpation of the hernia does not elicit any tenderness. low intensity. Bowel sounds also within high pitch. EXTREMITIES: There was no cyanosis, no clubbing, and no edema. Extremities were warm. NEUROLOGICAL: Reflexes in biceps, triceps, and brachioradialis were present. Patellar retinaculum present. Plantars were in flexion. Cranial nerves II through XII were symmetric and equal. Cerebellar function, there was no tremor. No nystagmus. No extrapyramidal rigidity. Sensory exam to pinprick, cotton touch, position are grossly normal. Motor strength was 5/5 against resistance in upper and lower extremities in proximal and distal muscles. LABORATORY DATA: Hemoglobin is 6.3, hematocrit 28.7, MCV of 90, WBC of 16.1, and platelets is 100,000. Her BUN and creatinine is 16 and 0.7 respectively. Her sodium is 159, potassium 2.9, chloride 100, CO2 is 26, and glucose is 146. SGOT and SGPT are normal. Her troponin is negative. Her proBNP is 104. Albumin is 4.3. Total protein is 7.8. Amylase and lipase are negative. Chest x-ray done yesterday showed no active disease. The patient had multiple imaging study of the abdomen and abdominal CT of his total abdominal content is normal liver, gallbladder, spleen, pancreas, adrenal and kidney. However, there is small bowel obstruction with transition point in the ventral hernia. The ileum distention was 4 to 5 cm without any abnormal radiological findings such as pneumatosis or free air. The pelvic content was normal as well. Imaging studies include 3 KUB at 3 different intervals and abdominal ultrasound did not reveal any additional pathology. IMPRESSION AND PLAN: The patient with uncontrolled high blood pressure and always controlled by diltiazem 90 mg b.i.d. and the patient is now without NG-tube and tolerates clear liquid diet. Repeat laboratory tests will be done in the a.m. Surgical consult already had seen the patient including the one who operated the patient several months ago. Repeat laboratory tests will be done in the a.m. Nora Rose M.D. DR: ANA JOB#: [id number] CC:
[2019-09-23 23:43] VITALS: BP 122/77
[2019-09-24 03:44] VITALS: BP 121/86
[2019-09-24] MEDS: Ketorolac 30mg Inj IV PRN (04:21)
--- NOTE | 2019-09-24 07:16 | NUR ---
HAND-OFF: Report given to Brenna OLIVAS.
--- NOTE | 2019-09-24 07:22 | NUR ---
NURSE NOTES: Received report from BRENDON Garcia. Patient A&Ox4. ON room air, no signs of distress or labored breathing. IV intact, patent, and infusing fluids. Resting comfortably in bed, reporting reduced pain. Bed in lowest position with call light in reach. Will continue with plan of care.
[2019-09-24 07:26] LABS: BASOPHILS % (AUTO) 0.9 % (0.0-2.0); EOSINOPHILS % (AUTO) 0.2 % (0.0-3.0); HEMATOCRIT 50.1 % (37.0-47.0); HEMOGLOBIN 16.8 G/DL (12.0-16.0); LYMPHOCYTES % (AUTO) 22.7 % (20.0-45.0); MEAN CORPUSCULAR VOLUME 90 FL (80-99); MONOCYTES % (AUTO) 8.8 % (1.0-10.0); NEUTROPHILS % (AUTO) 67.3 % (45.0-75.0); PLATELET COUNT 259 K/UL (150-450); RED BLOOD COUNT 5.58 M/UL (4.20-5.40); RED CELL DISTRIBUTION WIDTH 12.2 % (11.6-14.8); WHITE BLOOD COUNT 9.6 K/UL (4.8-10.8)
[2019-09-24 07:49] LABS: ALANINE AMINOTRANSFERASE 21 U/L (12-78); ALBUMIN 3.3 G/DL (3.4-5.0); ALBUMIN/GLOBULIN RATIO 0.9 (1.0-2.7); ALKALINE PHOSPHATASE 79 U/L (46-116); ANION GAP 8 mmol/L (5-15); ASPARTATE AMINO TRANSFERASE 19 U/L (15-37); BILIRUBIN,TOTAL 0.5 MG/DL (0.2-1.0); BLOOD UREA NITROGEN 9 mg/dL (7-18); CALCIUM 8.9 MG/DL (8.5-10.1); CARBON DIOXIDE 29 MMOL/L (21-32); CHLORIDE 103 MMOL/L (98-107); CREATININE 0.8 MG/DL (0.55-1.30); POTASSIUM 3.9 MMOL/L (3.5-5.1); SODIUM 140 MMOL/L (136-145)
[2019-09-24 08:00] VITALS: BP 142/86
[2019-09-24] MEDS: dilTIAZem HCl 90mg tab ORAL SCH ×2 (08:36→20:47)
[2019-09-24] MEDS: Pantoprazole Inj IVP SCH (08:36)
[2019-09-24] MEDS: Heparin 5000 units/ml inj SUBQ SCH ×2 (08:37→20:47)
--- NOTE | 2019-09-24 11:58 | Surgery Progress Note ---
Surgery Progress Note Subjective Symptoms: improved, tolerating diet, voiding well, passing flatus, BM Objective Last 24 Hour Vital Signs Date Time Temp Pulse Resp B/P (MAP) Pulse Ox O2 Delivery O2 Flow Rate FiO2 09/24/19 09:00 Room Air 09/24/19 08:36 72 142/86 09/24/19 08:00 98.6 72 18 142/86 (104) 95 09/24/19 03:44 97.6 86 16 121/86 (98) 95 09/23/19 23:43 97.7 81 16 122/77 (92) 95 09/23/19 21:00 Room Air 09/23/19 20:43 85 137/88 09/23/19 20:00 97.7 85 14 137/88 (104) 95 09/23/19 16:00 98.4 87 19 111/77 (88) 92 09/23/19 12:00 97.7 92 20 149/97 (114) 95 I&O Intake and Output 09/23/19 09/24/19 18:59 06:59 Intake Total 1500 ml 1250 ml Balance 1500 ml 1250 ml Intake Oral 100 ml IV Total 1100 ml 1150 ml Other 400 ml # Voids 3 # Bowel Movements 1 Cardiovascular: RSR Respiratory: clear Abdomen: soft, non-tender, present bowel sounds, non-distended Extremities: no edema, no tenderness, no cyanosis Laboratory Tests Test 09/24/19 06:55 White Blood Count 9.6 K/UL (4.8-10.8) Red Blood Count 5.58 M/UL (4.20-5.40) H Hemoglobin 16.8 G/DL (12.0-16.0) H Hematocrit 50.1 % (37.0-47.0) H Mean Corpuscular Volume 90 FL (80-99) Mean Corpuscular Hemoglobin 30.2 PG (27.0-31.0) Mean Corpuscular Hemoglobin Concent 33.7 G/DL (32.0-36.0) Red Cell Distribution Width 12.2 % (11.6-14.8) Platelet Count 259 K/UL (150-450) Mean Platelet Volume 6.6 FL (6.5-10.1) Neutrophils (%) (Auto) 67.3 % (45.0-75.0) Lymphocytes (%) (Auto) 22.7 % (20.0-45.0) Monocytes (%) (Auto) 8.8 % (1.0-10.0) Eosinophils (%) (Auto) 0.2 % (0.0-3.0) Basophils (%) (Auto) 0.9 % (0.0-2.0) Erythrocyte Sedimentation Rate 7 MM/HR (0-30) Prothrombin Time 10.9 SEC (9.30-11.50) Prothromb Time International Ratio 1.0 (0.9-1.1) Activated Partial Thromboplast Time 28 SEC (23-33) Sodium Level 140 MMOL/L (136-145) Potassium Level 3.9 MMOL/L (3.5-5.1) Chloride Level 103 MMOL/L (98-107) Carbon Dioxide Level 29 MMOL/L (21-32) Anion Gap 8 mmol/L (5-15) Blood Urea Nitrogen 9 mg/dL (7-18) Creatinine 0.8 MG/DL (0.55-1.30) Estimat Glomerular Filtration Rate > 60 mL/min (>60) Glucose Level 128 MG/DL (74-106) H Calcium Level 8.9 MG/DL (8.5-10.1) Total Bilirubin 0.5 MG/DL (0.2-1.0) Aspartate Amino Transf (AST/SGOT) 19 U/L (15-37) Alanine Aminotransferase (ALT/SGPT) 21 U/L (12-78) Alkaline Phosphatase 79 U/L (46-116) C-Reactive Protein, Quantitative 1.6 mg/dL (0.00-0.90) H Total Protein 6.9 G/DL (6.4-8.2) Albumin 3.3 G/DL (3.4-5.0) L Globulin 3.6 g/dL Albumin/Globulin Ratio 0.9 (1.0-2.7) L Plan Problems: (1) SBO (small bowel obstruction) Assessment & Plan: 69F with hx of 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 fortunately was able to reduce at bedside 4cm x 3cm defect right of midline mid abdomen palpable with reducible bowel improved not comfortable given size of hernia and recent events plan for repair tomorrow npo p mn iv fluids consent will follow with exam thank you (2) Ventral hernia Toribio Allen Sep 24, 2019 11:58
[2019-09-24 12:00] VITALS: BP 124/82
--- NOTE | 2019-09-24 12:00 | Pre-Procedure Note/Attestation ---
Pre-Procedure Note/Attestation Complete Prior to Procedure Procedure Narrative: incisional ventral hernia repair with mesh Indications for Procedure Pre-Operative Diagnosis: incarcerated ventral hernia with obstruction Attestation I attest that I discussed the nature of the procedure; its benefits; risks and complications; and alternatives (and the risks and benefits of such alternatives ), prior to the procedure, with the patient (or the patient's legal safety representative). I attest that, if there was a reasonable possibility of needing a blood transfusion, the patient (or the patient's legal safety representative) was given the [facility] standardized written summary, pursuant to the [place] Chap[place] Blood Safety Act ([place] Health and Safety Code # 1645, as amended). I attest that I re-evaluated the patient just prior to the surgery and that there has been no change in the patient's H&P, except as documented below: Toribio Allen Sep 24, 2019 11:59
[2019-09-24 16:00] VITALS: BP 134/86
--- NOTE | 2019-09-24 18:45 | Progress Note ---
DATE: 09/24/2019 SUBJECTIVE: The patient had a challenge on liquid feeding and attempt to see if the patient's reduction of the abdominal hernia been resolved. PHYSICAL EXAMINATION: VITAL SIGNS: Blood pressure 124/82, pulse is 72, respirations 19, temperature 98.5. HEENT: Eyes were normal. ENT, mucous membranes moist and intact. NECK: Supple with no JVD without lymph nodes. LUNGS: Clear. HEART: Normal sounds with regular beats. There is no tachycardia at rest. ABDOMEN: Soft, nontender with hyperactive bowel sounds. Midline hernia. EXTREMITIES: Warm without cyanosis, clubbing, or edema. LABORATORY AND DIAGNOSTIC DATA: Hemoglobin is 16.8, hematocrit 50.1 with MCV of 90, WBC of 9.6, and platelets are 259. Her BUN and creatinine are 9 and 0.8 respectively. Her sodium is 140, potassium 3.9, chloride 110, CO2 is 29. SGOT, SGPT, alkaline phosphatase are normal. Her albumin is 3.3 and total protein is 6.9. Amylase and lipase were normal yesterday. IMPRESSION: The patient could not tolerate feeding of the clear liquid diet that was given to her and she vomited all ingested volume multiple times yesterday. She is scheduled to undergo hernia repair in the morning by Dr. Allen and the patient is cleared for surgery. Nora Rose M.D. DR: GUI JOB#: [id number] CC:
--- NOTE | 2019-09-24 18:55 | NUR ---
HAND-OFF: Report given to BRENDON Garcia.
[2019-09-24 20:00] VITALS: BP 144/85
--- NOTE | 2019-09-24 20:00 | NUR ---
NURSE NOTES: Patient received in bed, c/o gas and bloating. Encouraged to stand and walk. Patient agreed, and walked a few steps but decided to just sit on the chair for a few minutes. Patient burped a couple of times. Will continue to monitor.
[2019-09-25] VITALS (13 sets, daily range): BP systolic 112–163; BP diastolic 72–95
--- NOTE | 2019-09-25 07:10 | NUR ---
NURSE NOTES: Report received from Radha OLIVAS. Patient awake and alert x 4, currently in bed. Patient has been NPO since midnight due to surgery this morning with Doctor Tamie. Heparin was held as told to Conner OLIVAS by previous nurse. Patient noted to have to have 22 trevor IV in right wrist with fluids running per MD orders. No complaints of SOB or pain. Patient does not have any complaints at this time. Call light within reach. Will continue to follow plan of care.
--- NOTE | 2019-09-25 07:12 | NUR ---
HAND-OFF: Report given to Conner OLIVAS.
[2019-09-25 07:29] LABS: BASOPHILS % (AUTO) 1.4 % (0.0-2.0); EOSINOPHILS % (AUTO) 0.7 % (0.0-3.0); HEMATOCRIT 49.9 % (37.0-47.0); HEMOGLOBIN 16.7 G/DL (12.0-16.0); LYMPHOCYTES % (AUTO) 24.7 % (20.0-45.0); MEAN CORPUSCULAR VOLUME 89 FL (80-99); MONOCYTES % (AUTO) 10.5 % (1.0-10.0); NEUTROPHILS % (AUTO) 62.7 % (45.0-75.0); PLATELET COUNT 264 K/UL (150-450); RED BLOOD COUNT 5.62 M/UL (4.20-5.40); WHITE BLOOD COUNT 8.6 K/UL (4.8-10.8)
[2019-09-25 07:45] LABS: ALANINE AMINOTRANSFERASE 22 U/L (12-78); ALBUMIN 3.3 G/DL (3.4-5.0); ALBUMIN/GLOBULIN RATIO 0.9 (1.0-2.7); ALKALINE PHOSPHATASE 76 U/L (46-116); ANION GAP 9 mmol/L (5-15); ASPARTATE AMINO TRANSFERASE 14 U/L (15-37); BILIRUBIN,TOTAL 0.5 MG/DL (0.2-1.0); BLOOD UREA NITROGEN 9 mg/dL (7-18); CALCIUM 8.8 MG/DL (8.5-10.1); CARBON DIOXIDE 27 MMOL/L (21-32); CHLORIDE 104 MMOL/L (98-107); CREATININE 0.7 MG/DL (0.55-1.30); POTASSIUM 3.4 MMOL/L (3.5-5.1); SODIUM 140 MMOL/L (136-145)
[2019-09-25] MEDS: Heparin 5000 units/ml inj SUBQ SCH ×2 (08:20→20:49)
[2019-09-25] MEDS: dilTIAZem HCl 90mg tab ORAL SCH ×2 (08:20→20:39)
[2019-09-25] MEDS: Pantoprazole Inj IVP SCH (08:25)
--- NOTE | 2019-09-25 08:30 | NUR ---
NURSE NOTES: amy Branch from surgery, here to bring patient down to surgery. Pre operative checklist done by Conner OLIVAS. Consent signed by patient. All personal belongings removed from patient. Patient has not metal on body. Patient has IV access in right wrist 22 trevor. Patient has been NPO since midnight. Patient does not have any questions at this time and is in good spirits. Name band verified with Jose Carlos. Chart given to Jose Carlos. Patient left care of Conner OLIVAS at this time. Patient awake and alert x 4 and in stable condition upon leaving unit.
[2019-09-25] MEDS ORDERED: Bacitracin 50000 Units Vial ONE (11:05)
[2019-09-25] MEDS ORDERED: Bupivacaine w/Epi 0.5% 30ml Vial INJ ONE (11:05)
[2019-09-25] MEDS ORDERED: LR 1000ml 1,000 ML IVLG SCH (11:16)
[2019-09-25] MEDS ORDERED: Lidocaine 1% MPF 10mg/ml 5ml ONE (11:29)
[2019-09-25] MEDS ORDERED: Dexamethasone 4mg/ml vial ONE (11:29)
[2019-09-25] MEDS ORDERED: Acetaminophen (Non formulary) 100 ML IV ONE (11:30)
[2019-09-25] MEDS ORDERED: Propofol 200mg/20ml IV ONE (11:30)
[2019-09-25] MEDS ORDERED: DiphenhydrAMINE 50mg/ml Inj IVP PRN (11:30)
[2019-09-25] MEDS ORDERED: Neostigmine 1mg/ml 10ml Inj ONE (11:30)
[2019-09-25] MEDS ORDERED: Meperidine 50mg/ml Inj(FOR RIGORS ONLY) IVP PRN (11:30)
[2019-09-25] MEDS ORDERED: Sterile Water Irrig 1000ml IRRIG ONE (11:30)
[2019-09-25] MEDS ORDERED: LORazepam Inj 2mg/ml 1ml IV PRN (11:30)
[2019-09-25] MEDS ORDERED: HYDROcodone/Acetamin 7.5/325 tab ORAL PRN (11:30)
[2019-09-25] MEDS ORDERED: Atropine Sulfate 0.4mg/ml inj IVP PRN (11:30)
[2019-09-25] MEDS ORDERED: oxyCODONE HCL/Acetaminophen 5/325mg ORAL PRN (11:30)
[2019-09-25] MEDS ORDERED: Hydromorphone 0.5mg/0.5ml inj IVP PRN (11:30)
[2019-09-25] MEDS ORDERED: LR 1000ml ONE (11:30)
[2019-09-25] MEDS ORDERED: fentaNYL 100 mcg/2 mL IV PRN (11:30)
[2019-09-25] MEDS ORDERED: Labetalol 5mg/ml 20ml vial IV PRN (11:30)
[2019-09-25] MEDS ORDERED: Metoclopramide 10mg/2ml Inj IVP PRN ×2 (11:30→14:30)
[2019-09-25] MEDS ORDERED: HYDROcodone/Acetamin 5/325 tab ORAL PRN (11:30)
--- NOTE | 2019-09-25 11:30 | Anethesia Preoperative Eval ---
Anesthesia Pre-op PMH/ROS General Date of Evaluation: Sep 25, 2019 Anesthesiologist: Jessie ASA Score: ASA 3 Mallampati Score Class I : Soft palate, uvula, fauces, pillars visible Class II: Soft palate, uvula, fauces visible Class III: Soft palate, base of uvula visible Class IV: Only hard plate visible Mallampati Classification: Class II Surgeon: Alejandro Diagnosis: Ventral Hernia Surgical Procedure: Ventral Hernia Repair Anesthesia History: none Family History: no anesthesia problems Allergies: Coded Allergies: No Known Allergies (Unverified , 03/14/19) Medications: see eMAR Patient NPO?: Yes NPO Date: Sep 25, 2019 NPO Time: 0000 Past Medical History Cardiovascular: Reports: HTN, other - HL PSxH Narrative: Abd Surgery, C/S X3 Anesthesia Pre-op Phys. Exam Physician Exam Last Vital Signs Date Time Temp Pulse Resp B/P (MAP) Pulse Ox O2 Delivery O2 Flow Rate FiO2 09/25/19 09:00 Room Air 09/25/19 08:00 97.7 69 18 132/94 (107) 96 09/22/19 23:35 98 Constitutional: NAD Neurologic: CN 2-12 intact Cardiovascular: RRR Respiratory: CTA Gastrointestinal: S/NT/ND Airway Exam Mallampati Score: Class II MO: full ROM: limited Teeth: intact Anesthesia Pre-op A/P Labs Hematology Test 09/25/19 06:35 White Blood Count 8.6 K/UL (4.8-10.8) Red Blood Count 5.62 M/UL (4.20-5.40) H Hemoglobin 16.7 G/DL (12.0-16.0) H Hematocrit 49.9 % (37.0-47.0) H Mean Corpuscular Volume 89 FL (80-99) Mean Corpuscular Hemoglobin 29.7 PG (27.0-31.0) Mean Corpuscular Hemoglobin Concent 33.4 G/DL (32.0-36.0) Red Cell Distribution Width 12.0 % (11.6-14.8) Platelet Count 264 K/UL (150-450) Mean Platelet Volume 6.6 FL (6.5-10.1) Neutrophils (%) (Auto) 62.7 % (45.0-75.0) Lymphocytes (%) (Auto) 24.7 % (20.0-45.0) Monocytes (%) (Auto) 10.5 % (1.0-10.0) H Eosinophils (%) (Auto) 0.7 % (0.0-3.0) Basophils (%) (Auto) 1.4 % (0.0-2.0) Coagulation Test 09/25/19 06:35 Prothrombin Time 11.1 SEC (9.30-11.50) Prothromb Time International Ratio 1.0 (0.9-1.1) Activated Partial Thromboplast Time 28 SEC (23-33) Chemistry Test 09/25/19 06:35 Sodium Level 140 MMOL/L (136-145) Potassium Level 3.4 MMOL/L (3.5-5.1) L Chloride Level 104 MMOL/L (98-107) Carbon Dioxide Level 27 MMOL/L (21-32) Anion Gap 9 mmol/L (5-15) Blood Urea Nitrogen 9 mg/dL (7-18) Creatinine 0.7 MG/DL (0.55-1.30) Estimat Glomerular Filtration Rate > 60 mL/min (>60) Glucose Level 123 MG/DL (74-106) H Calcium Level 8.8 MG/DL (8.5-10.1) Total Bilirubin 0.5 MG/DL (0.2-1.0) Aspartate Amino Transf (AST/SGOT) 14 U/L (15-37) L Alanine Aminotransferase (ALT/SGPT) 22 U/L (12-78) Alkaline Phosphatase 76 U/L (46-116) Total Protein 7.0 G/DL (6.4-8.2) Albumin 3.3 G/DL (3.4-5.0) L Globulin 3.7 g/dL Albumin/Globulin Ratio 0.9 (1.0-2.7) L Pre-Antibiotics Dru Gram Ancef IV Given Within 1 Hr of Incision: Yes Time Given: 11:46 Sampson Roman MD Sep 25, 2019 11:30
[2019-09-25] MEDS ORDERED: Rocuronium Bromide 50mg/5ml Inj IV ONE (11:31)
[2019-09-25] MEDS ORDERED: Midazolam 2mg/2ml Inj ONE (11:36)
[2019-09-25] MEDS ORDERED: fentaNYL 100 mcg/2 mL IV ONE (11:36)
[2019-09-25] MEDS ORDERED: NS Irrig 1000ml IRRIG ONE ×2 (12:01→12:08)
--- NOTE | 2019-09-25 12:09 | Immediate Post-Op Evaluation ---
Immediate Post-Op Evalulation Immediate Post-Op Evalulation Procedure: Repair Ventral Hernia Date of Evaluation: Sep 25, 2019 Time of Evaluation: 13:27 IV Fluids: 500 LR Blood Products: 0 Estimated Blood Loss: 20 Urinary Output: 0 Blood Pressure Systolic: 163 Blood Pressure Diastolic: 95 Pulse Rate: 74 Respiratory Rate: 16 O2 Sat by Pulse Oximetry: 100 Pain Score (1-10): 2 Nausea: No Vomiting: No Complications 0 Patient Status: awake, reacts, patent, extubated, none Hydration Status: adequate Dru Gram Ancef IV Given Within 1 Hr of Incision: Yes Time Given: 11:46 Sampson Roman MD Sep 25, 2019 12:09
[2019-09-25] MEDS ORDERED: Flumazenil 0.1mg/ml 5ml Inj IV ONE (13:02)
--- NOTE | 2019-09-25 13:30 | NUR ---
CASE MANAGEMENT:REVIEW SI;SURGERY TODAY; OPEN VENTRAL HERNIA REPAIR W/MESH 98.4 56 13 163/95 100% ON 6L SIMPLE MASK K+ 3.4 IS;MORPHINE IV Q15 MIN PRN PERCOCET PO Q1 HR PRN REGLAN IV Q1 HR BENADRY IV Q15 MIN PRN S/P SURGERY - IN RECOVERY NOW DCP;FROM HOME
--- NOTE | 2019-09-25 13:38 | Consultation ---
History of Present Illness General Chief Complaint: Dyspnea/Respdistress Present Illness Allergies: Coded Allergies: No Known Allergies (Unverified , 03/14/19) Medication History Scheduled Gabapentin* (Gabapentin*), 300 MG ORAL BID, (Reported) Rosuvastatin Calcium* (Crestor*), 10 MG ORAL DAILY, (Reported) Patient History Healthcare decision maker Resuscitation status Full Code Advanced Directive on File Physical Exam Last 24 Hour Vital Signs Date Time Temp Pulse Resp B/P (MAP) Pulse Ox O2 Delivery O2 Flow Rate FiO2 09/25/19 13:26 56 13 150/85 100 Simple Mask 6 09/25/19 13:21 59 15 152/86 100 Simple Mask 6 09/25/19 13:16 98.4 75 16 163/95 100 Simple Mask 6 09/25/19 13:14 74 16 100 09/25/19 09:00 Room Air 09/25/19 08:00 97.7 69 18 132/94 (107) 96 09/25/19 04:00 98.6 100 19 120/76 (91) 95 09/25/19 00:00 97.2 68 19 135/72 (93) 96 09/24/19 21:00 Room Air 09/24/19 20:47 69 144/85 09/24/19 20:00 97.0 69 19 144/85 (104) 97 09/24/19 16:00 98.3 68 18 134/86 (102) 95 Intake and Output 09/24/19 09/25/19 19:00 07:00 Intake Total 220 ml 1050 ml Balance 220 ml 1050 ml Intake Oral 120 ml IV Total 100 ml 1050 ml # Voids 4 4 Laboratory Tests Test 09/25/19 06:35 White Blood Count 8.6 K/UL (4.8-10.8) Red Blood Count 5.62 M/UL (4.20-5.40) H Hemoglobin 16.7 G/DL (12.0-16.0) H Hematocrit 49.9 % (37.0-47.0) H Mean Corpuscular Volume 89 FL (80-99) Mean Corpuscular Hemoglobin 29.7 PG (27.0-31.0) Mean Corpuscular Hemoglobin Concent 33.4 G/DL (32.0-36.0) Red Cell Distribution Width 12.0 % (11.6-14.8) Platelet Count 264 K/UL (150-450) Mean Platelet Volume 6.6 FL (6.5-10.1) Neutrophils (%) (Auto) 62.7 % (45.0-75.0) Lymphocytes (%) (Auto) 24.7 % (20.0-45.0) Monocytes (%) (Auto) 10.5 % (1.0-10.0) H Eosinophils (%) (Auto) 0.7 % (0.0-3.0) Basophils (%) (Auto) 1.4 % (0.0-2.0) Prothrombin Time 11.1 SEC (9.30-11.50) Prothromb Time International Ratio 1.0 (0.9-1.1) Activated Partial Thromboplast Time 28 SEC (23-33) Sodium Level 140 MMOL/L (136-145) Potassium Level 3.4 MMOL/L (3.5-5.1) L Chloride Level 104 MMOL/L (98-107) Carbon Dioxide Level 27 MMOL/L (21-32) Anion Gap 9 mmol/L (5-15) Blood Urea Nitrogen 9 mg/dL (7-18) Creatinine 0.7 MG/DL (0.55-1.30) Estimat Glomerular Filtration Rate > 60 mL/min (>60) Glucose Level 123 MG/DL (74-106) H Calcium Level 8.8 MG/DL (8.5-10.1) Total Bilirubin 0.5 MG/DL (0.2-1.0) Aspartate Amino Transf (AST/SGOT) 14 U/L (15-37) L Alanine Aminotransferase (ALT/SGPT) 22 U/L (12-78) Alkaline Phosphatase 76 U/L (46-116) Total Protein 7.0 G/DL (6.4-8.2) Albumin 3.3 G/DL (3.4-5.0) L Globulin 3.7 g/dL Albumin/Globulin Ratio 0.9 (1.0-2.7) L Height (Feet): 5 Height (Inches): 5.00 Weight (Pounds): 159 Medications Current Medications Medications (Trade) Dose Ordered Sig/Smita Route PRN Reason Start Time Stop Time Status Last Admin Dose Admin Acetaminophen (Tylenol) 650 mg Q4H PRN NG Mild Pain (Pain Scale 1-3) 09/23/19 00:30 10/23/19 00:29 Acetaminophen/ Hydrocodone Bitart (Allen 5/325) 1 tab Q1H PRN ORAL Mild Pain (Pain Scale 1-3) 09/25/19 11:30 09/25/19 18:00 Acetaminophen/ Hydrocodone Bitart (Allen 7.5/325) 1 tab Q1H PRN ORAL Moderate Pain (Pain Scale 4-6) 09/25/19 11:30 09/25/19 18:00 Al Hydroxide/Mg Hydroxide (Mylanta) 15 ml Q1H PRN ORAL gi upset 09/25/19 11:30 09/25/19 18:00 Atropine Sulfate (Atropine 0.4mg/ ml) 0.5 mg Q5M PRN IVP HR<40 09/25/19 11:30 09/25/19 18:00 Dextrose 1,000 ml @ 100 mls/hr Q10H IV 09/23/19 00:30 10/23/19 00:29 09/25/19 03:26 Diltiazem HCl (Cardizem) 90 mg Q12HR ORAL 09/23/19 10:45 10/23/19 10:44 09/24/19 20:47 Diphenhydramine HCl (Benadryl) 25 mg Q15M PRN IVP Itching 09/25/19 11:30 09/25/19 18:00 Fentanyl Citrate (Sublimaze 100 mcg/2 mL) 25 mcg Q10M PRN IV Moderate Pain (Pain Scale 4-6) 09/25/19 11:30 09/25/19 18:00 Heparin Sodium (Porcine) (Heparin 5000 units/ml) 5,000 units EVERY 12 HOURS SUBQ 09/23/19 09:00 10/23/19 08:59 09/24/19 08:37 Hydralazine HCl (Apresoline) 5 mg Q30M PRN IV SBP>160 / DBP>90 09/25/19 11:30 09/25/19 18:00 Hydromorphone HCl (Dilaudid) 0.5 mg Q15M PRN IVP Severe Pain (Pain Scale 7-10) 09/25/19 11:30 09/25/19 18:00 09/25/19 13:27 Ketorolac Tromethamine (Toradol 30mg) 15 mg Q6H PRN IV Moderate Pain (Pain Scale 4-6) 09/23/19 00:30 09/28/19 00:29 09/24/19 04:21 Labetalol HCl (Normodyne) 5 mg Q10M PRN IV SBP>160 / DBP>90 09/25/19 11:30 09/25/19 18:00 Lorazepam (Ativan 2mg/ml 1ml) 1 mg Q15M PRN IV For Anxiety 09/25/19 11:30 09/25/19 18:00 Meperidine HCl (Demerol) 25 mg Q5M PRN IVP Shivering.May repeat x 1 09/25/19 11:30 09/25/19 18:00 Metoclopramide HCl (Reglan) 10 mg Q1H PRN IVP Nausea & Vomiting 09/25/19 11:30 09/25/19 18:00 Ondansetron HCl (Zofran) 4 mg Q1H PRN IVP Nausea & Vomiting 09/25/19 11:30 09/25/19 18:00 Ondansetron HCl (Zofran) 4 mg Q4H PRN IVP Nausea & Vomiting 09/23/19 00:30 10/23/19 00:29 09/23/19 11:03 Oxycodone/ Acetaminophen (Percocet 5-325) 1 tab Q1H PRN ORAL Severe Pain (Pain Scale 7-10) 09/25/19 11:30 09/25/19 18:00 Pantoprazole (Protonix) 40 mg DAILY IVP 09/23/19 09:00 10/23/19 08:59 09/25/19 08:25 Assessment/Plan Assessment/Plan: Heme Consultation Note REQ : Nora Rose RFC: High erythrocyte count DOS: 09/24/19 HPI This is a 69-year-old female with multiple medical problem. She has a history of high blood pressure, abdominal aneurysm repair and hernia repair. She presents with chief complaint of nausea vomiting. Onset for the last 3 to 4 days. I will keep anything down. [place] anxious. [place] short of breath. No diarrhea. Also she said her hernia is getting much bigger. Cramping pain. 5 out of 10. She said her short of breath because she felt anxious. No chest pain. Blood pressure was elevated at home. Systolic was over 200. Her BP now improved, she is to be taken down for surgery by Dr. Allen today for transition point and sbp that is in the cecum, imaging has been noted, at this time noted to have a high hgb as wel, no sleep apnea, evangelina hx, does not smoke, no hx of renal malignancy, prior cbc has been reviewed as well, and this is nwas elevated 2 years ago as well. Allergies: No Known Allergies (Unverified , 03/14/19) Patient History Past Medical History: see triage record, old chart reviewed, HTN Past Surgical History: other Pertinent Family History: none Social History: Denies: smoking Now: No Immunizations: other Nursing Documentation: PMH: Agreed; PSxH: Agreed Hx Cardiac Problems: Yes Hx Cancer: No Hx Gastrointestinal Problems: Yes - GI surgery February 2019 Hx Neurological Problems: Yes Hx Peripheral Neuropathy: Yes Review of Systems Eye: Denies: eye pain, blurred vision ENT: Denies: ear pain, nose congestion, throat swelling Respiratory: Reports: shortness of breath; Denies: cough Cardiovascular: Denies: chest pain, palpitations Gastrointestinal: Reports: abdominal pain, nausea, vomiting; Denies: diarrhea Musculoskeletal: Denies: back pain, joint pain Skin: Denies: rash Neurological: Denies: headache, numbness Endocrine: Denies: increased thirst, increased urine Hematologic/Lymphatic: Denies: easy bruising All Other Systems: negative except mentioned in HPI Physical Exam Vitals with high blood pressure General: well appearing, no apparent distress, alert, obese Head: normocephalic, atraumatic Eyes: bilateral eye PERRL, bilateral eye EOMI ENT: hearing grossly normal, normal pharynx Neck: full range of motion, supple, no meningismus Respiratory: chest non-tender, lungs clear, normal breath sounds Cardiovascular: regular rate, rhythm, no murmur Gi: normal bowel sounds, non tender, no mass, no organomegaly, Large ventral hernia. Reducible Musculoskeletal: back normal, normal range of motion, gait/station normal Psychiatric: mood/affect normal Labs: noted Imaging: reviewed Assessment and recs: # Secondary polycythemia or erythrocytosis is likely is related to dehydration , volume down v other process --> may need a pulmonary evaluation for above, cxr has been reviewed --> sleep study may be necessary as outpatient --> trend hgb if consistently remains elevated, consider JAK2 --> if remains elevated, consider outpatient phlebotomy as needed # Leukocytosis is likely due to SBO (small bowel obstruction) --> has been addressed by Dr. Allen --> for sx on 09/25/2019, patient is aware --> smear noted # Hypertension --> sbp goal <150 --> now at goal # Ventral hernia --> per surg repair # Stress reaction # Nausea/vomiting is likely due to above # Dvt ppx heparin sq Appreciate consultation and dw Sai Dean MD Sep 25, 2019 13:38
--- NOTE | 2019-09-25 14:28 | Brief Operative Note ---
Immediate Post Operative Note Operative Note Pre-op Diagnosis: incarcerated ventral hernia with obstruction Procedure: incisional incarcerated ventral hernia repair with mesh Post-op Diagnosis: same as pre-op Surgeon: jena Anesthesiologist: peggy Anesthesia: general, local Specimen: yes Complications: none Condition: stable Fluids: see records Estimated Blood Loss: minimal Drains: none Implant(s) used?: Yes Toribio Allen Sep 25, 2019 14:28
[2019-09-25] MEDS ORDERED: Milk of Magnesia 30ml Ud ORAL PRN (14:30)
--- NOTE | 2019-09-25 14:45 | NUR ---
NURSE NOTES: Patient returned to unit. Report received from Moan OLIVAS. Report received. Patient had successful hernia repair. Patients current vital signs are stable: BP: 122/70 Heart rate: 55 BPM Respirations: 16 Oxygen: 96 % Temperature: 98.2 Patient is awake and alert x 4. Patient does not have complaints of pain at this time. Will resume IV fluids per MD orders. Patient can return to a regular diet per MD orders. Surgical insertion site noted with Mona. No drainage or redness. Non painful to touch. Dermabond and steristrips in place. Patient currently in stable condition. Will continue to follow plan of care.
[2019-09-25] MEDS: Docusate 100mg cap ORAL SCH (17:22)
[2019-09-25] MEDS: HYDROcodone/Acetamin 5/325 tab ORAL PRN ×2 (17:23→21:56)
--- NOTE | 2019-09-25 17:30 | Operative Note - Dictated ---
DATE OF OPERATION: 09/25/2019 PREOPERATIVE DIAGNOSIS: Incarcerated ventral incisional hernia. POSTOPERATIVE DIAGNOSIS: Incarcerated ventral incisional hernia. OPERATION PERFORMED: 1. Incarcerated incisional ventral hernia repair with mesh. 2. Open lysis of adhesions. 3. Implantation of mesh 4. adjacent tissue transfer for complex closure of abdominal wall wound ATTENDING SURGEON: Toribio Allen M.D. LICENSED INVESTMENT SALES ASSISTANT: None. ANESTHESIOLOGIST: Sampson Roman M.D. 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 ESTIMATED BLOOD LOSS: Minimal. IV FLUIDS: Please see anesthesia records. COMPLICATIONS: None. DRAINS: None. COUNTS: Sponge and needle count correct x2. SPECIMENS: Ventral hernia sac sent to pathology for review. IMPLANTS: Mesh, ventral. ANTIBIOTICS: 2 g Ancef. 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 Was seen in the office and scheduled for a laparoscopic ventral hernia repair that was performed in 2019 by myself where it was identified that the patient had "Trinidadian-cheese" abdomen. At that time, the prior hernia defect was repair, the sac excised followed by repair using mesh placement intra-abdominally with large mesh. Since the patient has been doing well and was seen in the office on followup. She recently began to develop abdominal discomfort, nausea and emesis, came to the emergency department for evaluation and CT scan identified an incarcerated ventral hernia with transition point identified. Upon examination, the patient had an incarcerated right mid abdominal incisional hernia with bowel contents that were only partially reducible. Given these findings, surgery was indicated and recommended. Risks, benefits, and alternatives were discussed with the patient in detail and consent was obtained. OPERATIVE NOTE: The patient was taken to the operating room and placed on the operating table in supine position with bilateral arms out. All bony prominences well padded. SCDs placed. Preoperative time-out taken identifying the patient, procedure, operative and surgical staff. A 2 g Ancef IV were given one hour prior to cut time. Abdomen was clipped, prepped, and draped in standard surgical fashion. The hernia defect was identified right of the midline just above the umbilicus. Local anesthetic was infiltrated and an incision was made over the hernia defect. The incision was carried down through the dermis subcutaneous tissue until the hernia sac was identified. The hernia sac was grasped and was identified to have bowel contents within it. The hernia sac was gently opened and the edges held in bowel contents identified. The bowel was mildly congested in this area. The bowel was reduced slowly under direct visualization. Following this, the hernia sac was excised down to the fascial edges where it could be identified. Hernia sac was excised circumferentially and sent to pathology for review. The fascial edges were grasped with Marcos's and the abdomen was inspected. The prior ventral hernia mesh was noted to be with the tacks in the anterior abdominal wall without complication. No folding or the abnormalities of the mesh was noted. Lateral mesh edge was at the level where the hernia had began to develop likely being one of the prior small [place] cheese. This was extended into the larger hernia that was now incarcerated. At this time, the bowel was evaluated and a small area of congestion where it was incarcerated. The bowel was monitored for few minutes noted to pink up pretty well. No other signs of obstruction or abnormality noted. The bowel was allowed to fall into the anatomical position without complication. The fascial edges were freshened up and a mesh was brought into the operative field and cut to the area of the hernia with overlap. for appropriate placement lysis of adhesions was required from omentum intra abdominal. this was performed with electrocautery and rachel. once completed a good area for mesh placement was made. Four quadrants were tacked into place with 2-0 Prolene sutures followed by closure of the primary defect with incorporation of the mesh using 2-0 Prolene sutures. Once appropriate hernia repair was identified, we began the closure of procedure. The subcutaneous tissue was irrigated and cleansed, followed by reapproximation in a multilayer fashion with adjacent tissue transfer for appropriate tension-free defect free area. The prior hernia defect size approximately 8 cm x 6 cm x 4 cm, and this area open would incline for seroma potential infectious process especially with mesh in place and therefore closure of the space necessary with a skin and tissue flap. The subcutaneous tissue and skin laterally were divided from the fascia and medialized to close skin, subcutaneous, and adjacent tissue transfer to cover the defect. This was reapproximated to the fascia with 3-0 Vicryl sutures followed by reapproximation of the skin in a two-layer fashion beginning with 3-0 Vicryl sutures followed by 4-0 Monocryl running subcuticular suture. Steri-Strips were applied. The patient tolerated the procedure well, was extubated and taken to postanesthesia care unit in stable condition. Toribio Allen M.D. DR: REGGIE JOB#: [id number] CC: TRISHA
--- NOTE | 2019-09-25 19:25 | NUR ---
NURSE NOTES: Received patient in bed. Awake, A/O x4. On room air, respirations unlabored. Patient denies pain at this time. Purewick in place. Iv in the Right wrist noted with no redness or swelling. Right abdomen surgery site noted with dressing intact. 1/2 side rails up.
--- NOTE | 2019-09-25 19:26 | NUR ---
HAND-OFF: Report given to Trung OLIVAS.
[2019-09-25] MEDS: ceFAZolin sod 2 GM in D5W 110 ML IV SCH (20:39)
[2019-09-26] VITALS: BP 133/86
[2019-09-26] MEDS: HYDROcodone/Acetamin 5/325 tab ORAL PRN ×3 (02:12→14:57)
[2019-09-26] MEDS: ceFAZolin sod 2 GM in D5W 110 ML IV SCH (03:22)
[2019-09-26 04:00] VITALS: BP 135/84
--- NOTE | 2019-09-26 06:06 | Hematology/Onc Progress Note ---
Assessment/Plan Assessment/Plan Assessment and recs: # Secondary polycythemia or erythrocytosis is likely is related to dehydration , volume down v other process --> may need a pulmonary evaluation for above, cxr has been reviewed --> sleep study may be necessary as outpatient --> trend hgb if consistently remains elevated, consider JAK2 --> if remains elevated, consider outpatient phlebotomy as needed # Leukocytosis is likely due to SBO (small bowel obstruction) --> has been addressed by Dr. Allen --> s/p hernia repair with mesh, lysis of adhesions --> smear noted # Hypertension --> sbp goal <150 --> now at goal # Ventral hernia --> s/p surg repair # Stress reaction # Nausea/vomiting is likely due to above # Dvt ppx heparin sq Appreciate consultation and dw RN Subjective Constitutional: Denies: no symptoms, chills, fever, malaise, weakness, other HEENT: Denies: no symptoms, eye pain, blurred vision, tearing, double vision, ear pain, ear discharge, nose pain, nose congestion, throat pain, throat swelling, mouth pain, mouth swelling, other Cardiovascular: Denies: no symptoms, chest pain, edema, irregular heart rate, lightheadedness, palpitations, syncope, other Respiratory: Denies: no symptoms, cough, shortness of breath, SOB with excertion, SOB at rest, sputum, wheezing, other Genitourinary: Denies: no symptoms, burning, discharge, frequency, flank pain, hematuria, incontinence, pain, urgency, other Neurologic/Psychiatric: Denies: no symptoms, anxiety, depressed, emotional problems, headache, numbness, paresthesia, pre-existing deficit, seizure, tingling, tremors, weakness, other Allergies: Coded Allergies: No Known Allergies (Unverified , 03/14/19) Subjective 09/26: no events noted overnight, surgery went well, currently without gas yet Objective Objective Current Medications Medications (Trade) Dose Ordered Sig/Smita Route PRN Reason Start Time Stop Time Status Last Admin Dose Admin Acetaminophen (Tylenol) 650 mg Q4H PRN NG Mild Pain (Pain Scale 1-3) 09/23/19 00:30 10/23/19 00:29 Acetaminophen (Tylenol) 650 mg Q4H PRN ORAL FEVER 09/25/19 14:30 10/25/19 14:29 Acetaminophen/ Hydrocodone Bitart ([place] 5/325) 1 tab Q4H PRN ORAL Moderate Pain (Pain Scale 4-6) 09/25/19 14:30 10/02/19 14:29 09/26/19 02:12 Al Hydroxide/Mg Hydroxide (Mylanta) 15 ml Q6H PRN ORAL DYSPEPSIA 09/25/19 14:30 10/25/19 14:29 Diltiazem HCl (Cardizem) 90 mg Q12HR ORAL 09/23/19 10:45 10/23/19 10:44 09/25/19 20:39 Diphenhydramine HCl (Benadryl) 25 mg Q8H PRN ORAL Itching/Pruritis 09/25/19 14:30 10/25/19 14:29 Docusate Sodium (Colace) 100 mg TWICE A DAY ORAL 09/25/19 18:00 10/25/19 17:59 09/25/19 17:22 Heparin Sodium (Porcine) (Heparin 5000 units/ml) 5,000 units EVERY 12 HOURS SUBQ 09/23/19 09:00 10/23/19 08:59 09/25/19 20:49 Ketorolac Tromethamine (Toradol 30mg) 15 mg Q6H PRN IV Moderate Pain (Pain Scale 4-6) 09/23/19 00:30 09/28/19 00:29 09/24/19 04:21 Magnesium Hydroxide (Mom) 30 ml BIDPRN PRN ORAL Constipation 09/25/19 14:30 10/25/19 14:29 Metoclopramide HCl (Reglan) 10 mg Q6H PRN IVP Nausea & Vomiting 09/25/19 14:30 10/25/19 14:29 Ondansetron HCl (Zofran) 4 mg Q4H PRN IVP Nausea & Vomiting 09/23/19 00:30 10/23/19 00:29 09/23/19 11:03 Pantoprazole (Protonix) 40 mg DAILY IVP 09/23/19 09:00 10/23/19 08:59 09/25/19 08:25 Temazepam (RestoriL) 7.5 mg DAILYPRN PRN ORAL Insomnia 09/25/19 14:30 10/02/19 14:29 09/25/19 20:39 Last 24 Hour Vital Signs Date Time Temp Pulse Resp B/P (MAP) Pulse Ox O2 Delivery O2 Flow Rate FiO2 09/26/19 04:00 97.4 61 12 135/84 (101) 99 09/26/19 00:00 98.0 59 16 133/86 (102) 98 09/25/19 21:00 Room Air 09/25/19 20:39 63 127/82 09/25/19 20:00 97.7 63 16 127/82 (97) 95 09/25/19 16:00 97.7 60 18 112/77 (89) 94 09/25/19 14:30 98.0 55 15 121/76 100 Nasal Cannula 3 09/25/19 14:15 54 16 113/72 100 Nasal Cannula 3 09/25/19 14:00 53 13 123/74 100 Nasal Cannula 3 09/25/19 13:57 98.0 09/25/19 13:46 55 15 140/82 100 Simple Mask 6 09/25/19 13:36 54 14 142/78 100 Simple Mask 6 09/25/19 13:26 56 13 150/85 100 Simple Mask 6 09/25/19 13:21 59 15 152/86 100 Simple Mask 6 09/25/19 13:16 98.4 75 16 163/95 100 Simple Mask 6 09/25/19 13:14 74 16 100 09/25/19 09:00 Room Air 09/25/19 08:00 97.7 69 18 132/94 (107) 96 09/25/19 04:00 98.6 100 19 120/76 (91) 95 09/25/19 00:00 97.2 68 19 135/72 (93) 96 09/24/19 21:00 Room Air 09/24/19 20:47 69 144/85 09/24/19 20:00 97.0 69 19 144/85 (104) 97 09/24/19 16:00 98.3 68 18 134/86 (102) 95 09/24/19 12:00 98.5 65 19 124/82 (96) 95 09/24/19 09:00 Room Air 09/24/19 08:36 72 142/86 09/24/19 08:00 98.6 72 18 142/86 (104) 95 Intake and Output 09/25/19 09/26/19 19:00 07:00 Intake Total 700 ml Output Total 20 ml Balance 680 ml IV Total 700 ml Output Estimated Blood Loss 20 ml Labs Test 09/23/19 06:10 09/23/19 07:00 09/24/19 06:55 09/25/19 06:35 White Blood Count 16.1 K/UL (4.8-10.8) 9.6 K/UL (4.8-10.8) 8.6 K/UL (4.8-10.8) Red Blood Count 5.41 M/UL (4.20-5.40) 5.58 M/UL (4.20-5.40) 5.62 M/UL (4.20-5.40) Hemoglobin 16.6 G/DL (12.0-16.0) 16.8 G/DL (12.0-16.0) 16.7 G/DL (12.0-16.0) Hematocrit 48.4 % (37.0-47.0) 50.1 % (37.0-47.0) 49.9 % (37.0-47.0) Mean Corpuscular Volume 90 FL (80-99) 90 FL (80-99) 89 FL (80-99) Mean Corpuscular Hemoglobin 30.7 PG (27.0-31.0) 30.2 PG (27.0-31.0) 29.7 PG (27.0-31.0) Mean Corpuscular Hemoglobin Concent 34.3 G/DL (32.0-36.0) 33.7 G/DL (32.0-36.0) 33.4 G/DL (32.0-36.0) Red Cell Distribution Width 12.1 % (11.6-14.8) 12.2 % (11.6-14.8) 12.0 % (11.6-14.8) Platelet Count 285 K/UL (150-450) 259 K/UL (150-450) 264 K/UL (150-450) Mean Platelet Volume 6.3 FL (6.5-10.1) 6.6 FL (6.5-10.1) 6.6 FL (6.5-10.1) Neutrophils (%) (Auto) % (45.0-75.0) 67.3 % (45.0-75.0) 62.7 % (45.0-75.0) Lymphocytes (%) (Auto) % (20.0-45.0) 22.7 % (20.0-45.0) 24.7 % (20.0-45.0) Monocytes (%) (Auto) % (1.0-10.0) 8.8 % (1.0-10.0) 10.5 % (1.0-10.0) Eosinophils (%) (Auto) % (0.0-3.0) 0.2 % (0.0-3.0) 0.7 % (0.0-3.0) Basophils (%) (Auto) % (0.0-2.0) 0.9 % (0.0-2.0) 1.4 % (0.0-2.0) Differential Total Cells Counted 100 Neutrophils % (Manual) 92 % (45-75) Lymphocytes % (Manual) 6 % (20-45) Monocytes % (Manual) 2 % (1-10) Eosinophils % (Manual) 0 % (0-3) Basophils % (Manual) 0 % (0-2) Band Neutrophils 0 % (0-8) Platelet Estimate Adequate Platelet Morphology Normal Red Blood Cell Morphology Normal Sodium Level 139 MMOL/L (136-145) 140 MMOL/L (136-145) 140 MMOL/L (136-145) Potassium Level 2.9 MMOL/L (3.5-5.1) 3.9 MMOL/L (3.5-5.1) 3.4 MMOL/L (3.5-5.1) Chloride Level 100 MMOL/L (98-107) 103 MMOL/L (98-107) 104 MMOL/L (98-107) Carbon Dioxide Level 26 MMOL/L (21-32) 29 MMOL/L (21-32) 27 MMOL/L (21-32) Anion Gap 13 mmol/L (5-15) 8 mmol/L (5-15) 9 mmol/L (5-15) Blood Urea Nitrogen 16 mg/dL (7-18) 9 mg/dL (7-18) 9 mg/dL (7-18) Creatinine 0.7 MG/DL (0.55-1.30) 0.8 MG/DL (0.55-1.30) 0.7 MG/DL (0.55-1.30) Estimat Glomerular Filtration Rate > 60 mL/min (>60) > 60 mL/min (>60) > 60 mL/min (>60) Glucose Level 146 MG/DL (74-106) 128 MG/DL (74-106) 123 MG/DL (74-106) Calcium Level 8.6 MG/DL (8.5-10.1) 8.9 MG/DL (8.5-10.1) 8.8 MG/DL (8.5-10.1) Total Bilirubin 0.3 MG/DL (0.2-1.0) 0.5 MG/DL (0.2-1.0) 0.5 MG/DL (0.2-1.0) Direct Bilirubin < 0.1 MG/DL (0.0-0.3) Aspartate Amino Transf (AST/SGOT) 22 U/L (15-37) 19 U/L (15-37) 14 U/L (15-37) Alanine Aminotransferase (ALT/SGPT) 23 U/L (12-78) 21 U/L (12-78) 22 U/L (12-78) Alkaline Phosphatase 85 U/L (46-116) 79 U/L (46-116) 76 U/L (46-116) Total Protein 7.0 G/DL (6.4-8.2) 6.9 G/DL (6.4-8.2) 7.0 G/DL (6.4-8.2) Albumin 3.7 G/DL (3.4-5.0) 3.3 G/DL (3.4-5.0) 3.3 G/DL (3.4-5.0) Amylase Level 41 U/L (25-115) Lipase 194 U/L (73-393) Urine Color Pale yellow Urine Appearance Clear Urine pH 7 (4.5-8.0) Urine Specific [place] 1.010 (1.005-1.035) Urine Protein Negative (NEGATIVE) Urine Glucose (UA) 3+ (NEGATIVE) Urine Ketones 4+ (NEGATIVE) Urine Blood 1+ (NEGATIVE) Urine Nitrite Negative (NEGATIVE) Urine Bilirubin Negative (NEGATIVE) Urine Urobilinogen Normal MG/DL (0.0-1.0) Urine Leukocyte Esterase Negative (NEGATIVE) Urine RBC 0-2 /HPF (0 - 2) Urine WBC 0-2 /HPF (0 - 2) Urine Squamous Epithelial Cells Few /LPF (NONE/OCC) Urine Bacteria Occasional /HPF (NONE) Erythrocyte Sedimentation Rate 7 MM/HR (0-30) Prothrombin Time 10.9 SEC (9.30-11.50) 11.1 SEC (9.30-11.50) Prothromb Time International Ratio 1.0 (0.9-1.1) 1.0 (0.9-1.1) Activated Partial Thromboplast Time 28 SEC (23-33) 28 SEC (23-33) C-Reactive Protein, Quantitative 1.6 mg/dL (0.00-0.90) Globulin 3.6 g/dL 3.7 g/dL Albumin/Globulin Ratio 0.9 (1.0-2.7) 0.9 (1.0-2.7) Height (Feet): 5 Height (Inches): 5.00 Weight (Pounds): 159 Objective Vitals with high blood pressure General: well appearing, no apparent distress, alert, obese Head: normocephalic, atraumatic Eyes: bilateral eye PERRL, bilateral eye EOMI ENT: hearing grossly normal, normal pharynx Neck: full range of motion, supple, no meningismus Respiratory: chest non-tender, lungs clear, normal breath sounds Cardiovascular: regular rate, rhythm, no murmur Gi: normal bowel sounds, non tender, no mass, no organomegaly, small surgical sites c/d/i Musculoskeletal: back normal, normal range of motion, gait/station normal Psychiatric: mood/affect normal Sai Radford MD Sep 26, 2019 06:06
[2019-09-26 06:44] LABS: BASOPHILS % (AUTO) 0.5 % (0.0-2.0); HEMATOCRIT 47.7 % (37.0-47.0); HEMOGLOBIN 16.1 G/DL (12.0-16.0); LYMPHOCYTES % (AUTO) 10.4 % (20.0-45.0); MEAN CORPUSCULAR VOLUME 90 FL (80-99); MONOCYTES % (AUTO) 7.2 % (1.0-10.0); NEUTROPHILS % (AUTO) 81.8 % (45.0-75.0); PLATELET COUNT 256 K/UL (150-450); RED CELL DISTRIBUTION WIDTH 11.9 % (11.6-14.8); WHITE BLOOD COUNT 12.7 K/UL (4.8-10.8)
--- NOTE | 2019-09-26 07:27 | NUR ---
HAND-OFF: Report given to Marissa OLIVAS.
--- NOTE | 2019-09-26 07:28 | NUR ---
NURSE NOTES: Received patient in bed awake. With O2 via NC, no SOB or acute distress. IV line intact and patent, no s/sx of infiltration. Sx dressing dry and intact, no bleeding noted. With complaints of pain, will give due pain medication. HOB elevated. Bed locked in lowest position. Call light within reach. Will continue plan of care.
[2019-09-26 07:52] LABS: ANION GAP 9 mmol/L (5-15); BLOOD UREA NITROGEN 14 mg/dL (7-18); CALCIUM 8.9 MG/DL (8.5-10.1); CARBON DIOXIDE 28 MMOL/L (21-32); CHLORIDE 102 MMOL/L (98-107); CREATININE 0.8 MG/DL (0.55-1.30); POTASSIUM 3.7 MMOL/L (3.5-5.1); SODIUM 138 MMOL/L (136-145)
[2019-09-26 08:00] VITALS: BP 137/96
--- NOTE | 2019-09-26 08:17 | 48 Hour Post Anesthesia Eval ---
Post Anesthesia Evaluation Procedure: Repair Ventral Hernia Date of Evaluation: Sep 26, 2019 Time of Evaluation: 06:18 Blood Pressure Systolic: 135 0: 84 Pulse Rate: 61 Respiratory Rate: 12 Temperature (Fahrenheit): 97.4 O2 Sat by Pulse Oximetry: 99 Airway: patent Nausea: No Vomiting: No Pain Intensity: 2 Hydration Status: adequate Cardiopulmonary Status: Stable Mental Status/LOC: patient returned to baseline Follow-up Care/Observations: 0 Post-Anesthesia Complications: 0 Follow-up care needed: N/A Sampson Roman MD Sep 26, 2019 08:16
[2019-09-26] MEDS: dilTIAZem HCl 90mg tab ORAL SCH ×2 (08:18→20:59)
[2019-09-26] MEDS: Pantoprazole Inj IVP SCH (08:18)
[2019-09-26] MEDS: Docusate 100mg cap ORAL SCH ×2 (08:19→17:27)
[2019-09-26] MEDS: Heparin 5000 units/ml inj SUBQ SCH ×2 (08:20→21:03)
--- NOTE | 2019-09-26 10:15 | Progress Note ---
DATE: 09/25/2019 SUBJECTIVE: The patient is awake and alert. Afebrile and hemodynamically stable. She underwent today umbilical hernia repair. Procedure was uneventful. The patient tolerated the procedure well. PHYSICAL EXAMINATION: VITAL SIGNS: Blood pressure 112/77, pulse is 60, respirations 18, and temperature 97.7. HEENT: Eyes were normal. ENT, mucous membranes were moist and intact. NECK: Supple with no JVD without lymph nodes. LUNGS: Clear. HEART: Normal sounds with regular beats. ABDOMEN: Soft and nontender with normal bowel sounds. Surgical scar was well tenderness or rebound tenderness. EXTREMITIES: Warm without cyanosis, clubbing, or edema. LABORATORY DATA: Hemoglobin is , hematocrit with MCV of 89, WBC of 8.6, and platelets are 264,000. Her BUN and creatinine are 9 and 0.7 respectively. Her sodium is 140, potassium 3.4, chloride 104, and CO2 is 27. Albumin is 3.3. Total protein is 7. IMPRESSION: The patient is doing well, postsurgical repair. PLAN: Repeat laboratory tests will be done in the a.m. Nora Rose M.D. DR: ANA JOB#: [id number] CC:
[2019-09-26 12:00] VITALS: BP 140/98
--- NOTE | 2019-09-26 13:43 | Surgery Progress Note ---
Surgery Progress Note Subjective Procedure Performed incisional incarcerated ventral hernia repair with mesh Symptoms: improved, tolerating diet, voiding well, passing flatus Objective Last 24 Hour Vital Signs Date Time Temp Pulse Resp B/P (MAP) Pulse Ox O2 Delivery O2 Flow Rate FiO2 09/26/19 09:00 Room Air 09/26/19 08:18 61 135/84 09/26/19 08:16 61 12 99 09/26/19 08:00 97.8 63 19 137/96 (110) 96 09/26/19 04:00 97.4 61 12 135/84 (101) 99 09/26/19 00:00 98.0 59 16 133/86 (102) 98 09/25/19 21:00 Room Air 09/25/19 20:39 63 127/82 09/25/19 20:00 97.7 63 16 127/82 (97) 95 09/25/19 16:00 97.7 60 18 112/77 (89) 94 09/25/19 14:30 98.0 55 15 121/76 100 Nasal Cannula 3 09/25/19 14:15 54 16 113/72 100 Nasal Cannula 3 09/25/19 14:00 53 13 123/74 100 Nasal Cannula 3 09/25/19 13:57 98.0 09/25/19 13:46 55 15 140/82 100 Simple Mask 6 I&O Intake and Output 09/25/19 09/26/19 19:00 07:00 Intake Total 700 ml Output Total 20 ml 350 ml Balance 680 ml -350 ml IV Total 700 ml Output Urine Total 350 ml Estimated Blood Loss 20 ml Dressing: dry Wound: clean, dry Cardiovascular: RSR Respiratory: clear Abdomen: soft, flat, non-tender, present bowel sounds, non-distended Extremities: no tenderness, no cyanosis Laboratory Tests Test 09/26/19 05:45 White Blood Count 12.7 K/UL (4.8-10.8) H Red Blood Count 5.30 M/UL (4.20-5.40) Hemoglobin 16.1 G/DL (12.0-16.0) H Hematocrit 47.7 % (37.0-47.0) H Mean Corpuscular Volume 90 FL (80-99) Mean Corpuscular Hemoglobin 30.4 PG (27.0-31.0) Mean Corpuscular Hemoglobin Concent 33.8 G/DL (32.0-36.0) Red Cell Distribution Width 11.9 % (11.6-14.8) Platelet Count 256 K/UL (150-450) Mean Platelet Volume 6.4 FL (6.5-10.1) L Neutrophils (%) (Auto) 81.8 % (45.0-75.0) H Lymphocytes (%) (Auto) 10.4 % (20.0-45.0) L Monocytes (%) (Auto) 7.2 % (1.0-10.0) Eosinophils (%) (Auto) 0.0 % (0.0-3.0) Basophils (%) (Auto) 0.5 % (0.0-2.0) Sodium Level 138 MMOL/L (136-145) Potassium Level 3.7 MMOL/L (3.5-5.1) Chloride Level 102 MMOL/L (98-107) Carbon Dioxide Level 28 MMOL/L (21-32) Anion Gap 9 mmol/L (5-15) Blood Urea Nitrogen 14 mg/dL (7-18) Creatinine 0.8 MG/DL (0.55-1.30) Estimat Glomerular Filtration Rate > 60 mL/min (>60) Glucose Level 116 MG/DL (74-106) H Calcium Level 8.9 MG/DL (8.5-10.1) Plan Problems: (1) SBO (small bowel obstruction) Assessment & Plan: 69F with hx of incisional ventral hernia and [place] cheese abdomen s/p lap ventral hernia repair with mesh presented with recurrent ventral incisional hernia with obstruction IMPRESSION: Small bowel obstruction, transition point within the ventral hernia which contains the cecum, ileocecal valve, and terminal ileum. s/p ventral hernia repair with mesh improving d/c planning for tomorrow will follow with exam thank you (2) Ventral hernia Toribio Allen Sep 26, 2019 13:43
--- NOTE | 2019-09-26 15:20 | NUR ---
P.T Note: P.T evaluation completed and tx initiated. Please refer to P.T evaluation for current functional status.
[2019-09-26 16:00] VITALS: BP 130/90
--- NOTE | 2019-09-26 19:01 | NUR ---
HAND-OFF: Report given to
--- NOTE | 2019-09-26 19:10 | NUR ---
NURSE NOTES: Received patient in bed. A/O x4. Patient is on NC 2 lpm, respirations unlabored. Patient denies pain at this time. Laying in high-fowlers, 1/2 side rails up. Bed at the lowest position. SCD in place. Purewick in place. IV site in the Right wrist with dressing intact.
[2019-09-26 20:00] VITALS: BP 166/103
[2019-09-27] VITALS: BP 136/90
[2019-09-27] MEDS: HYDROcodone/Acetamin 5/325 tab ORAL PRN ×3 (00:23→10:35)
[2019-09-27 04:00] VITALS: BP 159/91
--- NOTE | 2019-09-27 07:17 | NUR ---
HAND-OFF: Report given to Marissa OLIVAS.
--- NOTE | 2019-09-27 07:20 | NUR ---
NURSE NOTES: Received patient in bed asleep. No SOB or acute distress. IV line intact and patent. HOB elevated. Bed locked in lowest position. Call light within reach. Will monitor for pain and continue plan of care.
[2019-09-27 08:00] VITALS: BP 139/97
[2019-09-27] MEDS: Pantoprazole Inj IVP SCH (08:32)
[2019-09-27] MEDS: Docusate 100mg cap ORAL SCH (08:32)
[2019-09-27] MEDS: dilTIAZem HCl 90mg tab ORAL SCH (08:32)
[2019-09-27] MEDS: Heparin 5000 units/ml inj SUBQ SCH (08:34)
--- NOTE | 2019-09-27 11:31 | Progress Note ---
SUBJECTIVE: The patient is awake alert, afebrile, hemodynamically stable, . She tolerated clear liquid diet. PHYSICAL EXAMINATION: VITAL SIGNS: Blood pressure 166/103, pulse is 63, respirations of 16, temperature 97.4. HEENT: Eyes were normal. ENT, mucous membranes were moist and intact. NECK: Supple with no JVD without lymph nodes. LUNGS: Clear. HEART: Normal sounds with regular beats. ABDOMEN: Soft and nontender with normal bowel sounds. EXTREMITIES: Warm without cyanosis, clubbing, or edema. The patient tolerated well clear liquid diet without nausea and vomiting. No abdominal pain. LABORATORY DATA: Hemoglobin 6.1, hematocrit 27.7, MCV of 90, WBC of 12.7, and platelets of 256,000. Her BUN and creatinine are 14 and 0.8 respectively. Sodium is 138, potassium 3.7, chloride 102, CO2 is 28. No new laboratory data available at the time of this dictation. IMPRESSION AND PLAN: The patient is good spirit. She tolerated well all the symptoms of postmenopausal syndrome. Repeat laboratory test will be done in the a.m. rapidly improving. We will wait for her to advance diet. According to the patient, abdominal pain is minimal and she has been without difficulties, but she . Nora Rose M.D. DR: Emiliano JOB#: [id number] CC:
[2019-09-27 12:00] VITALS: BP 139/84
--- NOTE | 2019-09-27 14:17 | NUR ---
CASE MANAGEMENT:REVIEW SI;POST OP DAY 2 VENTRAL HERNIA REPAIR 97.7 82 18 166/103 95% ON RA WBC 12.7 IS;HEPARIN SUBQ Q12 HR TORADOL IV Q6 HR PRN NORCO PO Q4 HRS PRN MED SURG STATUS DCP; HOME
--- NOTE | 2019-09-27 14:32 | Hematology/Onc Progress Note ---
Assessment/Plan Assessment/Plan Assessment and recs: # Secondary polycythemia or erythrocytosis is likely is related to dehydration , volume down v other process --> may need a pulmonary evaluation for above, cxr has been reviewed --> sleep study may be necessary as outpatient --> trend hgb if consistently remains elevated, consider JAK2 --> if remains elevated, consider outpatient phlebotomy as needed --> hgb trend: 16.7-->16.1 # Leukocytosis is likely due to SBO (small bowel obstruction) --> has been addressed by Dr. Allen --> s/p hernia repair with mesh, lysis of adhesions --> smear noted --> wbc trend: 12.7 # Hypertension --> sbp goal <150 --> now at goal # Ventral hernia --> s/p surg repair --> patho report reviewed # Stress reaction # Nausea/vomiting is likely due to above # Dvt ppx heparin sq Appreciate consultation and selwyn RN Subjective Allergies: Coded Allergies: No Known Allergies (Unverified , 03/14/19) Subjective 09/26: no events noted overnight, surgery went well, currently without gas yet 09/27: awake and alert, no acute events, labs reviewed, vt Objective Objective Current Medications Medications (Trade) Dose Ordered Sig/Smita Route PRN Reason Start Time Stop Time Status Last Admin Dose Admin Acetaminophen (Tylenol) 650 mg Q4H PRN NG Mild Pain (Pain Scale 1-3) 09/23/19 00:30 10/23/19 00:29 Acetaminophen (Tylenol) 650 mg Q4H PRN ORAL FEVER 09/25/19 14:30 10/25/19 14:29 Acetaminophen/ Hydrocodone Bitart ([place] 5/325) 1 tab Q4H PRN ORAL Moderate Pain (Pain Scale 4-6) 09/25/19 14:30 10/02/19 14:29 09/27/19 10:35 Al Hydroxide/Mg Hydroxide (Mylanta) 15 ml Q6H PRN ORAL DYSPEPSIA 09/25/19 14:30 10/25/19 14:29 Diltiazem HCl (Cardizem) 90 mg Q12HR ORAL 09/23/19 10:45 10/23/19 10:44 09/27/19 08:32 Diphenhydramine HCl (Benadryl) 25 mg Q8H PRN ORAL Itching/Pruritis 09/25/19 14:30 10/25/19 14:29 Docusate Sodium (Colace) 100 mg TWICE A DAY ORAL 09/25/19 18:00 10/25/19 17:59 09/27/19 08:32 Heparin Sodium (Porcine) (Heparin 5000 units/ml) 5,000 units EVERY 12 HOURS SUBQ 09/23/19 09:00 10/23/19 08:59 09/27/19 08:34 Ketorolac Tromethamine (Toradol 30mg) 15 mg Q6H PRN IV Moderate Pain (Pain Scale 4-6) 09/23/19 00:30 09/28/19 00:29 09/24/19 04:21 Magnesium Hydroxide (Mom) 30 ml BIDPRN PRN ORAL Constipation 09/25/19 14:30 10/25/19 14:29 09/27/19 08:32 Metoclopramide HCl (Reglan) 10 mg Q6H PRN IVP Nausea & Vomiting 09/25/19 14:30 10/25/19 14:29 Ondansetron HCl (Zofran) 4 mg Q4H PRN IVP Nausea & Vomiting 09/23/19 00:30 10/23/19 00:29 09/23/19 11:03 Pantoprazole (Protonix) 40 mg DAILY IVP 09/23/19 09:00 10/23/19 08:59 09/27/19 08:32 Temazepam (RestoriL) 7.5 mg DAILYPRN PRN ORAL Insomnia 09/25/19 14:30 10/02/19 14:29 09/25/19 20:39 Last 24 Hour Vital Signs Date Time Temp Pulse Resp B/P (MAP) Pulse Ox O2 Delivery O2 Flow Rate FiO2 09/27/19 12:00 97.7 72 18 139/84 (102) 96 09/27/19 09:00 Room Air 09/27/19 08:32 68 139/97 09/27/19 08:00 97.7 68 18 139/97 (111) 98 09/27/19 04:00 97.3 82 16 159/91 (113) 97 09/27/19 00:00 97.7 68 16 136/90 (105) 95 09/26/19 21:00 Room Air 09/26/19 20:59 63 166/103 09/26/19 20:00 97.4 63 16 166/103 (124) 97 09/26/19 16:00 97.8 74 16 130/90 (103) 99 09/26/19 12:00 97.6 70 18 140/98 (112) 98 09/26/19 09:00 Room Air 09/26/19 08:18 61 135/84 09/26/19 08:16 61 12 99 09/26/19 08:00 97.8 63 19 137/96 (110) 96 09/26/19 04:00 97.4 61 12 135/84 (101) 99 09/26/19 00:00 98.0 59 16 133/86 (102) 98 09/25/19 21:00 Room Air 09/25/19 20:39 63 127/82 09/25/19 20:00 97.7 63 16 127/82 (97) 95 09/25/19 16:00 97.7 60 18 112/77 (89) 94 09/25/19 14:30 98.0 55 15 121/76 100 Nasal Cannula 3 Intake and Output 09/26/19 09/27/19 19:00 07:00 Intake Total 700 ml Balance 700 ml Intake Oral 700 ml # Voids 5 1 Labs Test 09/25/19 06:35 09/26/19 05:45 White Blood Count 8.6 K/UL (4.8-10.8) 12.7 K/UL (4.8-10.8) Red Blood Count 5.62 M/UL (4.20-5.40) 5.30 M/UL (4.20-5.40) Hemoglobin 16.7 G/DL (12.0-16.0) 16.1 G/DL (12.0-16.0) Hematocrit 49.9 % (37.0-47.0) 47.7 % (37.0-47.0) Mean Corpuscular Volume 89 FL (80-99) 90 FL (80-99) Mean Corpuscular Hemoglobin 29.7 PG (27.0-31.0) 30.4 PG (27.0-31.0) Mean Corpuscular Hemoglobin Concent 33.4 G/DL (32.0-36.0) 33.8 G/DL (32.0-36.0) Red Cell Distribution Width 12.0 % (11.6-14.8) 11.9 % (11.6-14.8) Platelet Count 264 K/UL (150-450) 256 K/UL (150-450) Mean Platelet Volume 6.6 FL (6.5-10.1) 6.4 FL (6.5-10.1) Neutrophils (%) (Auto) 62.7 % (45.0-75.0) 81.8 % (45.0-75.0) Lymphocytes (%) (Auto) 24.7 % (20.0-45.0) 10.4 % (20.0-45.0) Monocytes (%) (Auto) 10.5 % (1.0-10.0) 7.2 % (1.0-10.0) Eosinophils (%) (Auto) 0.7 % (0.0-3.0) 0.0 % (0.0-3.0) Basophils (%) (Auto) 1.4 % (0.0-2.0) 0.5 % (0.0-2.0) Prothrombin Time 11.1 SEC (9.30-11.50) Prothromb Time International Ratio 1.0 (0.9-1.1) Activated Partial Thromboplast Time 28 SEC (23-33) Sodium Level 140 MMOL/L (136-145) 138 MMOL/L (136-145) Potassium Level 3.4 MMOL/L (3.5-5.1) 3.7 MMOL/L (3.5-5.1) Chloride Level 104 MMOL/L (98-107) 102 MMOL/L (98-107) Carbon Dioxide Level 27 MMOL/L (21-32) 28 MMOL/L (21-32) Anion Gap 9 mmol/L (5-15) 9 mmol/L (5-15) Blood Urea Nitrogen 9 mg/dL (7-18) 14 mg/dL (7-18) Creatinine 0.7 MG/DL (0.55-1.30) 0.8 MG/DL (0.55-1.30) Estimat Glomerular Filtration Rate > 60 mL/min (>60) > 60 mL/min (>60) Glucose Level 123 MG/DL (74-106) 116 MG/DL (74-106) Calcium Level 8.8 MG/DL (8.5-10.1) 8.9 MG/DL (8.5-10.1) Total Bilirubin 0.5 MG/DL (0.2-1.0) Aspartate Amino Transf (AST/SGOT) 14 U/L (15-37) Alanine Aminotransferase (ALT/SGPT) 22 U/L (12-78) Alkaline Phosphatase 76 U/L (46-116) Total Protein 7.0 G/DL (6.4-8.2) Albumin 3.3 G/DL (3.4-5.0) Globulin 3.7 g/dL Albumin/Globulin Ratio 0.9 (1.0-2.7) Height (Feet): 5 Height (Inches): 5.00 Weight (Pounds): 168 Objective Vitals: with high blood pressure General: well appearing, no apparent distress, alert, obese Head: normocephalic, atraumatic Eyes: bilateral eye PERRL, bilateral eye EOMI ENT: hearing grossly normal, normal pharynx Neck: full range of motion, supple, no meningismus Respiratory: chest non-tender, lungs clear, normal breath sounds. NC+ Cardiovascular: regular rate, rhythm, no murmur Gi: normal bowel sounds, non tender, no mass, no organomegaly, small surgical sites c/d/i Musculoskeletal: back normal, normal range of motion, gait/station normal Psychiatric: mood/affect normal Sai Radford MD Sep 27, 2019 14:32
--- NOTE | 2019-09-27 15:00 | Surgery Progress Note ---
Surgery Progress Note Subjective Procedure Performed incisional incarcerated ventral hernia repair with mesh Symptoms: improved, tolerating diet, voiding well, passing flatus, pain decreased Objective Last 24 Hour Vital Signs Date Time Temp Pulse Resp B/P (MAP) Pulse Ox O2 Delivery O2 Flow Rate FiO2 09/27/19 12:00 97.7 72 18 139/84 (102) 96 09/27/19 09:00 Room Air 09/27/19 08:32 68 139/97 09/27/19 08:00 97.7 68 18 139/97 (111) 98 09/27/19 04:00 97.3 82 16 159/91 (113) 97 09/27/19 00:00 97.7 68 16 136/90 (105) 95 09/26/19 21:00 Room Air 09/26/19 20:59 63 166/103 09/26/19 20:00 97.4 63 16 166/103 (124) 97 09/26/19 16:00 97.8 74 16 130/90 (103) 99 I&O Intake and Output 09/26/19 09/27/19 19:00 07:00 Intake Total 700 ml Balance 700 ml Intake Oral 700 ml # Voids 5 1 Dressing: dry Wound: clean Cardiovascular: RSR Respiratory: clear Abdomen: soft, flat, non-tender, present bowel sounds Extremities: no edema, no tenderness, no cyanosis Plan Problems: (1) SBO (small bowel obstruction) Assessment & Plan: 69F with hx of incisional ventral hernia and wallisian cheese abdomen s/p lap ventral hernia repair with mesh presented with recurrent ventral incisional hernia with obstruction IMPRESSION: Small bowel obstruction, transition point within the ventral hernia which contains the cecum, ileocecal valve, and terminal ileum. s/p ventral hernia repair with mesh improving d/c planning out pt follow up next week rx written will follow with exam thank you (2) Ventral hernia Toribio Allen Sep 27, 2019 15:00
--- NOTE | 2019-09-27 15:18 | NUR ---
RD ASSESSMENT & RECOMMENDATIONS SEE CARE ACTIVITY FOR COMPLETE ASSESSMENT DAILY ESTIMATED NEEDS: Needs based on Surgery/ 57kg abw 25-30 kcals/kg 5538-0805 total kcals 1-2 g protein/kg 57-114 g total protein 25-30 mL/kg 3113-2730 total fluid mLs NUTRITION DIAGNOSIS: Altered GI function R/T admitted w/ recurrent ventral incisional hernia with obstruction as evidenced by s/p incisional incarcerated ventral hernia repair with mesh, diet now advanced to regular. CURRENT DIET:REGULAR PO DIET RECOMMENDATIONS: SOFT diet as tolerated ADDITIONAL RECOMMENDATIONS: Standing wt for accurate CBW Monitor for continued good PO intake and tolerance
[2019-09-27 16:00] VITALS: BP 134/85
[2019-09-27] MEDS ORDERED: NORCO 5-325 TA1 EACH ORAL (16:49)
[2019-09-27] MEDS ORDERED: COLACE100 MG ORAL (16:50)
--- NOTE | 2019-09-27 17:35 | NUR ---
NURSE NOTES: Patient discharged to home accompanied by sister. Discharge instructions given. IV line removed, no s/sx of infiltration. ID band removed. Belongings accounted for. No new skin issues noted. Wheeled to lobby by rui.
--- NOTE | 2019-09-28 15:43 | Discharge Summary ---
Discharge Summary Discharge Summary _ DATE OF ADMISSION: 09/22/2019 DATE OF DISCHARGE: 09/27/2019 DISCHARGED BY: Dr. Rose REASON FOR ADMISSION: [] 69 years old female with past medical history acute ID expected goal hypertension, status post large ventral hernia repair presented with a severe abdominal pain at the site of surgery associated with the nausea and vomiting. No diarrhea. Abdomen became progressively more distended. Upon evaluation vital signs are stable. Laboratory work-up revealed leukocytosis WBC 14.1 stable hemoglobin hematocrit. BUN 25, creatinine 0.9. Glucose 178. Troponin was negative. proBNP 104. Urinalysis revealed no evidence of UTI, +2 protein, +3 ketones. Chest x-ray revealed no acute cardiopulmonary pathology. CT scan of the abdomen and pelvis revealed small bowel obstruction with transition point within the ventral hernia which contains the cecum, ileocecal valve and terminal ileum. NG tube was placed in emergency department patient started on the IV fluids. Patient received IV analgesic and admitted for further management CONSULTANTS: able bodied tankerman/oncologist Dr. Maldonado surgery Dr. Allen psychiatrist HOSPITAL COURSE: [] Patient admitted to medical surgical floor. Surgeon closely followed. Patient initially was kept n.p.o. on bowel rest with NG tube decompression. Patient started on clear liquid diet as tolerated. Patient was follow-up with a serial KUB. Follow-up KUB revealed no acute findings NG tube was discontinued and patient started on clear liquid diet as tolerated. Antihypertensive medication regimen was optimized due to uncontrolled initially blood pressure. Abdominal ultrasound revealed no acute findings. Diffusely echogenic liver suggesting fatty infiltration. Surgeon was able to reduce hernia at the bedside. Patient undergone treatment for repair of a ventral hernia 127 patient tolerated procedure well. Postoperatively pain management was addressed. Patient slowly started on diet and was able to tolerate. Antiemetics were on board as needed. Blood pressure stabilized with current regimen. Hematology seen the patient for secondary polycythemia or erythroid cytosis likely related to dehydration. Leukocytosis trending no fever supportive care provided. Bowel regimen instituted. Hematology seen the patient for secondary polycythemia/erythrocytosis. Currently able bodied tankerman erythrocytosis was likely due to dehydration leukocytosis trending down likely was due to small bowel obstruction. DVT and GI prophylaxis provided. Patient clinically stabilized and was ready for discharge home FINAL DIAGNOSES: Small bowel obstruction Incarcerated ventral incisional hernia Status post repair of incarcerated incisional ventral hernia with a mesh, open lysis of adhesion, implantation of mesh, adjacent tissue transfer for complex closure of abdominal wall wound Hypertension uncontrolled Secondary polycythemia/erythrocytosis DISCHARGE MEDICATIONS: See Medication Reconciliation list. DISCHARGE INSTRUCTIONS: Patient was discharged home. Follow-up with a primary care provider in 1 week. Follow-up with the surgeon as instructed I have been assigned to dictate discharge summary for this account. I was not involved in the patient's management. Margarita Monreal NP Sep 28, 2019 15:43
== END 2019-09-27 17:35 | disposition home or self-care (01) | DRG 336 ==
LOC: EMR 22:05 → EDBEDREQ 22:18 → 4E 22:23 → EDBEDREQ 22:54
PROC: 0WUF0JZ Supplement Abdominal Wall with Synthetic Substitute, Open Approach (ICD-10-PCS; principal; 2019-09-25 09:00)
PROC: 0JX80ZZ Transfer Abdomen Subcutaneous Tissue and Fascia, Open Approach (ICD-10-PCS; principal; 2019-09-25 09:00)
PROC: 0DN80ZZ Release Small Intestine, Open Approach (ICD-10-PCS; principal; 2019-09-25 09:00)
DX: K43.0 Incisional hernia with obstruction, without gangrene (principal); K56.50 Intestinal adhesions [bands], unspecified as to partial versus complete obstruction; I25.2 Old myocardial infarction; Z79.82 Long term (current) use of aspirin; D75.1 Secondary polycythemia; I10 Essential (primary) hypertension; E86.0 Dehydration; G62.9 Polyneuropathy, unspecified
CPT/HCPCS: 36415; 71045; 74018; 74176; 76700; 80048; 80053; 80076; 81001; 81003; 82150; 83690; 83880; 84484; 85007; 85025; 85610; 85651; 85730; 86140; 94003; 94150; 96361; 96374; 96375; 96376; 99285; J2250; J2405; J2710; J7030; J8499

== ENCOUNTER 2019-11-14 11:00 | Inpatient (IN) | payer MEDICARE, MEDICAID ==
[2019-11-14] VITALS (13 sets, daily range): BP systolic 97–144; BP diastolic 59–91
[~2019-11-14] VITALS: Ht 158.8 cm; Wt 79.0 kg
[~2019-11-14 11:00] MED LIST changes: +COLACE100 MG ORAL; +NORCO 5-325 TA1 EACH ORAL; +ceFAZolin sod 1 GM in NS 55 ML IVPB ONE
--- NOTE | 2019-11-14 11:45 | Pre-Procedure Note/Attestation ---
Pre-Procedure Note/Attestation Complete Prior to Procedure Procedure Narrative: L4-5-s1 laminectomy/discectomy Indications for Procedure Pre-Operative Diagnosis: L4-5-s1 stenosis Attestation I attest that I discussed the nature of the procedure; its benefits; risks and complications; and alternatives (and the risks and benefits of such alternatives ), prior to the procedure, with the patient (or the patient's legal traveling representative). I attest that, if there was a reasonable possibility of needing a blood transfusion, the patient (or the patient's legal traveling representative) was given the [facility] standardized written summary, pursuant to the [place] Blood Safety Act ([place] Health and Safety Code # 1645, as amended). I attest that I re-evaluated the patient just prior to the surgery and that there has been no change in the patient's H&P, except as documented below: Fidel Mills MD Nov 14, 2019 11:45
[2019-11-14] MEDS ORDERED: fentaNYL 100 mcg/2 mL IV ONE (12:03)
[2019-11-14] MEDS ORDERED: Lidocaine 1% MPF 10mg/ml 5ml ONE (12:03)
[2019-11-14] MEDS ORDERED: Vancomycin 1gm vial IVPB ONE (12:19)
[2019-11-14] MEDS ORDERED: Gelfoam Size TOPIC ONE (12:20)
[2019-11-14] MEDS ORDERED: Bacitracin 50000 Units Vial ONE (12:20)
[2019-11-14] MEDS ORDERED: Succinylcholine 20mg/ml 10ml vial ONE (12:20)
[2019-11-14] MEDS ORDERED: Thrombin 5000 units TOPIC ONE (12:20)
[2019-11-14] MEDS ORDERED: Bupivacaine w/Epi 0.5% 30ml Vial INJ ONE (12:20)
[2019-11-14] MEDS ORDERED: Sterile Water Irrig 1000ml IRRIG ONE (14:00)
[2019-11-14] MEDS ORDERED: NS Irrig 1000ml ONE (14:00)
[2019-11-14] MEDS ORDERED: LR 1000ml ONE (14:00)
[2019-11-14] MEDS ORDERED: Propofol 1,000mg/ 100ml btl IV ONE (14:00)
--- NOTE | 2019-11-14 14:43 | Brief Operative Note ---
Immediate Post Operative Note Operative Note Pre-op Diagnosis: L4-5-s1 stenosis Procedure: L4-s1 laminotomy Post-op Diagnosis: same as pre-op Findings: consistent w/pre-op dx studies Surgeon: jonny Plate Grainer: ney simmons Anesthesiologist: alcon Anesthesia: general Specimen: none Complications: none Condition: stable Fluids: 800 Estimated Blood Loss: minimal Drains: none Implant(s) used?: No Fidel Mills MD Nov 14, 2019 14:43
[2019-11-14] MEDS ORDERED: Rocuronium Bromide 50mg/5ml Inj IV ONE (15:19)
[2019-11-14] MEDS ORDERED: LR 1000ml 1,000 ML IVLG SCH (15:28)
--- NOTE | 2019-11-14 15:28 | Anethesia Preoperative Eval ---
Anesthesia Pre-op PMH/ROS General Date of Evaluation: Nov 14, 2019 Time of Evaluation: 14:00 Anesthesiologist: Tobin ASA Score: ASA 3 Mallampati Score Class I : Soft palate, uvula, fauces, pillars visible Class II: Soft palate, uvula, fauces visible Class III: Soft palate, base of uvula visible Class IV: Only hard plate visible Mallampati Classification: Class II Surgeon: Gene Diagnosis: Lumbar radiculopathy Surgical Procedure: Lumbar laminotomy Anesthesia History: none Family History: no anesthesia problems Allergies: Coded Allergies: No Known Allergies (Unverified , 11/14/19) Medications: see eMAR Patient NPO?: Yes NPO Date: Nov 13, 2019 NPO Time: 2199 Past Medical History Cardiovascular: Reports: HTN, CAD, [place] - about a year ago, other - PVD; Denies: valve dz, arrhythmia Pulmonary: Denies: asthma, COPD, MAY, other Gastrointestinal/Genitourinary: Reports: GERD; Denies: CRI, ESRD, other Neurologic/Psychiatric: Reports: depression/anxiety, other - chronic pain; Denies: dementia, CVA, TIA Endocrine: Reports: hypothyroidism; Denies: DM, steroids, other HEENT: Denies: cataract (L), cataract (R), glaucoma, [place] (L), [place] (R), other Hematology/Immune: Denies: anemia, DVT, bleeding disorder, other Musculoskeletal/Integumentary: Reports: OA Other: other - overweight PMH Narrative: as above PSxH Narrative: AAA repair,laparotomy, hernia repair Anesthesia Pre-op Phys. Exam Physician Exam Last Vital Signs Date Time Temp Pulse Resp B/P (MAP) Pulse Ox O2 Delivery O2 Flow Rate FiO2 11/14/19 12:18 98.2 87 20 144/65 (91) 97 11/14/19 12:07 Room Air Constitutional: NAD Cardiovascular: RRR, no M/R/G Respiratory: CTA Gastrointestinal: S/NT/ND Airway Exam Mallampati Score: Class II MO: limited Neck: stiff ROM: limited Teeth: missing Dentures: no upper, no lower Anesthesia Pre-op A/P Labs see chart Studies Pre-op Studies: EKG - SR Risk Assessment & Plan Assessment: ASA 3 Plan: GA with ETT neurmonitoring Status Change Before Surgery: No Pre-Antibiotics Drug: Ancef 1gr. Given Within 1 Hr of Incision: Yes Time Given: 14:48 Jarrett Rudd MD Nov 14, 2019 15:28
[2019-11-14] MEDS ORDERED: Acetaminophen (Non formulary) 100 ML IV ONE (15:30)
[2019-11-14] MEDS ORDERED: DiphenhydrAMINE 50mg/ml Inj IVP PRN (15:30)
[2019-11-14] MEDS ORDERED: Hydromorphone 0.5mg/0.5ml inj IVP PRN ×2 (15:30→18:15)
[2019-11-14] MEDS ORDERED: Glycopyrrolate 0.2mg/ml 1ml Vial ONE (15:41)
[2019-11-14] MEDS ORDERED: Ketorolac 30mg Inj ONE (15:42)
[2019-11-14] MEDS ORDERED: Labetalol 5mg/ml 20ml vial IV ONE (15:42)
--- NOTE | 2019-11-14 16:49 | Diagnostic Imaging Report ---
INDICATION: Pain, intraoperative TECHNIQUE: Intraoperative imaging localization Fluoroscopy time: 6 seconds Total dose: 0.06076 mGym2 Total number of images: 2 COMPARISON: None FINDINGS: Surgical needles projected posterior to the L4 and L5 superior endplates. Surgical tool projected posterior to the L4-5 disc. IMPRESSION: Intraoperative imaging, as described
--- NOTE | 2019-11-14 16:54 | Immediate Post-Op Evaluation ---
Immediate Post-Op Evalulation Immediate Post-Op Evalulation Procedure: L4 to S1 laminotomy with decompression Date of Evaluation: Nov 14, 2019 Time of Evaluation: 16:53 IV Fluids: 800 Blood Products: none Estimated Blood Loss: 50 Urinary Output: 100 Blood Pressure Systolic: 128 Blood Pressure Diastolic: 72 Pulse Rate: 82 Respiratory Rate: 22 O2 Sat by Pulse Oximetry: 99 Temperature (Fahrenheit): 97.6 Pain Score (1-10): 1 Nausea: No Vomiting: No Complications none Patient Status: reacts, patent, extubated, none Hydration Status: adequate Jarrett Rudd MD Nov 14, 2019 16:54
[2019-11-14] MEDS: D5 1/2NS 1,000 ML IV SCH (18:25)
[2019-11-14] MEDS: Docusate 100mg cap ORAL SCH (18:25)
[2019-11-14] MEDS ORDERED: Metoclopramide 10mg/2ml Inj IVP PRN ×2 (18:30→19:45)
--- NOTE | 2019-11-14 18:45 | Operative Note - Dictated ---
DATE OF OPERATION: 11/14/2019 SURGEON: Fidel Mills M.D. MANUFACTURING CONTROLS ENGINEER: Stoney Makrham PA-C. ANESTHESIOLOGIST: Jarrett Rudd M.D. ANESTHESIA TYPE: General endotracheal anesthesia. PREOPERATIVE DIAGNOSES: 1. Spinal stenosis, L4-L5 central with anterolisthesis. 2. L5-S1 spinal stenosis. POSTOPERATIVE DIAGNOSES: 1. Spinal stenosis, L4-L5 central with anterolisthesis. 2. L5-S1 spinal stenosis. PROCEDURE: 1. Right-sided hemilaminectomy, L4-L5, L5-S1. 2. Left-sided laminectomy, L4-L5 through a right-sided approach. 3. Diskectomy, L4-L5, right side. 4. Neurolysis, L4-L5. 5. Partial facetectomy, right side, L4-5. 6. Use of operating microscope. 7. Neurodiagnostic monitoring. ESTIMATED BLOOD LOSS: 50 mL. COMPLICATIONS: None. FLUIDS: 800 mL. INDICATIONS: The patient is a very pleasant woman, 69-year-old with fairly intractable right lower extremity pain. She has had pain management and despite this, has recurrence of symptoms. Surgical intervention was recommended. I did discuss with her spinal fusion, L4-L5 due to the anterolisthesis. However, she is reluctant to have a fusion. We decided to decompress. She primarily only has right-sided leg pain, however, there is notable stenosis on the left as well. It was elected to perform a unilateral decompression at L4-L5 and to decompress the contralateral level through a right-sided approach to hopefully avoid worsening instability. The patient elected to proceed. RISK NOTE: The patient was explained in detail risks and benefits of surgery to include, but not be limited to those of bleeding, infection, damage to nerves, vessels, tendons, anesthetic reaction, aspiration, and possibly . The patient understood and wished to proceed. OPERATIVE PROCEDURE IN DETAIL: The patient was taken to the operative suite. After general endotracheal anesthesia was obtained, Gant catheter was placed. She was turned prone onto the radiolucent table. Back was prepped and draped in usual sterile fashion. Fluoroscope was brought in place. The L4-L5 level was marked out. It was verified fluoroscopically with a spinal needle in place. At this point, a midline incision from L4 through S1 was carried out. Right-sided subperiosteal dissection was carried out. Significant facet overgrowth on the right side was noted. There was noted a right-sided facet cyst at L4-L5 and at L5-S1, which was removed. At this point, operating microscope was brought in place, hemilaminectomy was performed at L4 and the leading edge of L5. Ligamentum flavum was removed in a piecemeal fashion. The partial medial facetectomy was achieved. Extensive neural scarring was encounter with adhesions of the L5 nerve roots. At this point, meticulous neurolysis was achieved using micro instruments to mobilize the L5 nerve root. At this point, once it was mobilized off the disk, a small prominence of the disk was encountered, consistent with subligamentous herniation. An annulotomy was performed with a #15 blade and with multiple passes using a Shine, the subligamentous disk herniation was removed. Copious irrigation was performed. At this point, the decompression was carried out medially. It was elected to perform a contralateral left-sided decompression using a right-sided approach. The microscope was rotated and the patient was positioned in such a fashion that the lamina on the left side at L4 and leading edge of L5 could be visualized. The lamina was drilled out, keeping the ligamentum flavum in place for protection. Once this was achieved, the leading edge of lamina was removed with a Kerrison 2 and Kerrison 3 punch. Once the left-sided decompression was achieved leaving the outer table of the lamina intact, the ligamentum flavum was removed in a piecemeal fashion. Once satisfied with the central decompression, copious irrigation was performed. Valsalva demonstrated no CSF leak. This area was packed off with FloSeal. Attention was then turned to the L5 level on the right side. Hemilaminectomy of L5 and the leading edge of S1 was performed using standard technique by drilling and thinning out the lamina. Kerrison punch for elevating it off of the ligamentum flavum and then removing the ligamentum flavum in a piecemeal fashion. Decompression of the lateral recess at L5-S1 was safely achieved, decompressing the nerve root. Copious irrigation was performed. Due to the persistent muscle ooze, it was elected to place a medium-sized Hemovac drain. In addition, due to the patient's anatomy and significant subcutaneous adipose, I elected to place vancomycin powder 500 mg deep to the fascia and 500 above the fascia. Fascia was repaired using #1 Vicryl. Hemovac drain was tested and noted not to be sewn in. The subcutaneous closure was then performed using 2-0 Vicryl. Dermabond was applied. Sterile dressing was applied. The patient was then turned onto her back, awakened, extubated, and transferred to recovery room. Sponge and needle counts were correct. [facility] Lizbet Mills DR: OLINDA JOB#: [id number] CC: TRISHA
--- NOTE | 2019-11-14 18:45 | NUR ---
NURSE NOTES: Patient arrived to unit at 1755 via bed from PACU. Received report from Mona OLIVAS. Patient is awake and oriented, no acute distress noted, reporting pain rated 9/10 at surgical site. Surgical site dressing clean, dry, intact, hemovac clamped. VS assessed and stable. Neuro check assessed intact, patient denies numbness/tingling to extremities. SCD's on. IV intact, patent. VS assessed and stable. Order received from Dr. Todd MD ordered to give a dose immediately, dose given as ordered, will reassess. Home medications reviewed with Dr. Jimenez, domi orders to continue home medications received. Side rails upx3, bed low and locked, call light within reach.
--- NOTE | 2019-11-14 19:18 | NUR ---
HAND-OFF: Report given to Alyshau RN.
[2019-11-14] MEDS ORDERED: DiphenhydrAMINE 25mg Tab ORAL PRN ×2 (19:30→20:00)
[2019-11-14] MEDS ORDERED: HYDROcodone/Acetamin 10/325 tab ORAL PRN (19:30)
--- NOTE | 2019-11-14 19:30 | NUR ---
NURSE NOTES: Patient alert, awake, and verbally responsive. Breathing unlabored on 2L O2 via NC without distress. IV noted intact. Purewick on and working. Hemovac intact and compressed. Hydration provided as requested. Call light placed within reach. Will continue to monitor and provide care as ordered.
[2019-11-14] MEDS ORDERED: HYDROcodone/Acetamin 5/325 tab ORAL PRN (20:00)
--- NOTE | 2019-11-14 20:45 | Consultation ---
DATE OF CONSULTATION: 11/14/2019 CONSULTING PHYSICIAN: Brandon Brooks M.D. REFERRING PHYSICIAN: Fidel Mills M.D. REASON FOR CONSULTATION: Acute pain consult. HISTORY OF PRESENT ILLNESS: Dear Dr. Fidel Mills, Thank you kindly for consulting me to evaluate and render an opinion as to how to proceed in the management of the patient's acute postoperative lumbar spine pain after multiple level bilateral lumbar spine decompressive surgery today. The patient is a 69-year-old elderly woman who required multiple level lumbar spine decompressive surgery today. She complained of severe postoperative pain consult. You consulted me to help with her pain control. I saw the patient at bedside. I discussed the case with the recovery room nurse, BRENDON Carpenter along with the floor nurse, BRENDON Conteh. I performed detailed history and physical examination. I reviewed the medical record in detail including advance directives. PAST MEDICAL HISTORY: 1. Acute postoperative lumbar spine pain, status post decompressive lumbar spine surgery by Dr. Fidel Mills October 2019. 2. Elderly age. 3. Obesity. 4. Chronic lumbar spine pain with neuropathy. 5. 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 MEDICATIONS: At home Neurontin 600 mg b.i.d., Lilly 5/325 mg p.r.n., Colace. ALLERGIES: No known drug allergies. FAMILY HISTORY: Lung cancer. SOCIAL HISTORY: The patient denies tobacco or marijuana usage. She drinks alcohol socially. REVIEW OF SYSTEMS: Per Dr. Jimenez. PHYSICAL EXAMINATION: VITAL SIGNS: Age 69. Height is 5 feet 1 inch, weight 164 pounds, body mass index 31. Vital signs shows pain level 7/10 on the visual analog pain scale. Afebrile, pulse 65, respirations 16, blood pressure 113/73, oxygen saturation 98% on supplemental oxygen. HEENT: Normocephalic and atraumatic. CHEST: Clear to auscultation. HEART: Regular rate and rhythm. ABDOMEN: Soft. BREASTS: Deferred. GENITOURINARY: Deferred. BACK: Pain with range of motion lumbar spine. EXTREMITIES: Moving all extremities x4. A 5/5 dorsiflexion and 5/5 plantar flexion bilateral lower extremities. DIAGNOSTIC TESTING: Shows 12-lead EKG nonspecific ST-T changes. Preoperative chest x-ray shows unremarkable chest exam November 03, 2019. MRI lumbar spine dated August 04, 2019 L3-L4, L4-L5 and L5-S1 with a 4 mm disk bulges and grade 1 anterolisthesis of L4 over L5. IMPRESSION: 1. Acute postoperative lumbar spine pain, status post decompressive lumbar spine surgery by Dr. Fidel Mills October 2019. 2. elderly age. 3. Obesity. 4. Chronic lumbar spine pain with neuropathy. 5. 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 TREATMENT RECOMMENDATIONS: After discussion with the recovery room nurse, the orthopedic floor nurse RN, examining the patient at bedside, I have devised the following analgesic plan. I will resume the patient's home Neurontin dose at 600 mg b.i.d. She does not appear to be anxious so I would avoid the class of benzodiazepines at this time. I have set up tiered regimen of analgesics. I have started with 5/325 Lilly one tablet orally every three hours p.r.n. for mild pain. I have ordered Lilly 10/325 one tablet orally every three hours p.r.n. for moderate pain. I have ordered a breakthrough dose of Dilaudid 0.5 mg intravenously every three hours pain for moderate breakthrough pain. If these doses are ineffective, I will continue increasing the parental narcotic Dilaudid dosing. I have empirically placed the patient on Pepcid 20 mg b.i.d. for GI ulcer prophylaxis. I have ordered p.r.n. dose of Mylanta 30 mL q.6 every 6 hours in case of any GERD symptom exacerbation. I have ordered Benadryl 25 mg orally every 6 hours in case of any itching complaints. I have ordered Zofran 4 mg intravenously every 4 hours p.r.n. for nausea and vomiting symptoms. I will resume the patient's Colace. I have ordered a dose of Fioricet one tablet orally every 8 hours in case of any headache complaints. Dr. Macario Jimenez will manage the patient's medical issues. I have ordered incentive spirometer to encourage good pulmonary toilet. I will defer DVT prophylaxis to the surgeon. Brandon Brooks M.D. DR: Crow JOB#: [id number] CC:
--- NOTE | 2019-11-14 21:00 | NUR ---
NURSE NOTES: Patient's surgical dressing is intact, dry, and clean. Hemovac intact to the site and compressed properly. Will continue to monitor.
[2019-11-14] MEDS: Hydromorphone 0.5mg/0.5ml inj IVP PRN (21:26)
[2019-11-14] MEDS: ceFAZolin sod 1 GM in D5W 55 ML IV SCH (21:26)
--- NOTE | 2019-11-14 23:00 | NUR ---
NURSE NOTES: Patient started voiding after the removal of hamm catheter. Voided 50ml. Yellow and Clear urine. Patient said she needs more time. Denies fullness or tender when palpated. Will continue to monitor.
[2019-11-15] VITALS: BP 123/77
[2019-11-15] MEDS: Hydromorphone 0.5mg/0.5ml inj IVP PRN ×5 (00:26→19:54)
[2019-11-15] MEDS: D5 1/2NS 1,000 ML IV SCH ×2 (03:30→13:12)
[2019-11-15 04:00] VITALS: BP 121/76
[2019-11-15] MEDS: ceFAZolin sod 1 GM in D5W 55 ML IV SCH ×2 (05:35→14:29)
--- NOTE | 2019-11-15 07:33 | NUR ---
NURSE NOTES: Patient was able to void well without complications after the first void at 2300. Provided appropriate pain management. Surgical site dressing kept intact, dry, and clean.
--- NOTE | 2019-11-15 07:35 | NUR ---
HAND-OFF: Report given to BRENDON Conteh and BRENDON Hernandez. Plan of care endorsed.
--- NOTE | 2019-11-15 07:48 | NUR ---
NURSE NOTES: Handoff received from MINSU RN. Patient is asleep in bed, breaths even and unlabored on 2L nasal cannula, IV is patent and asymptomatic. Hemovac is compressed and draining sanguinous output. Bed is low and locked, side rails up x2, call light is within reach.
[2019-11-15 08:00] VITALS: BP 142/95
[2019-11-15] MEDS: Docusate 100mg cap ORAL SCH ×2 (09:30→18:39)
--- NOTE | 2019-11-15 10:35 | NUR ---
PT EVALUATION NOTE Patient seen for initial evaluation. Patient presents with impaired functional mobility and pain s/p lumbar surgery. Patient educated in back precautions and log roll technique. Patient required min assist for bed mobility and SBA for transfers with FWW. Patient able to ambulate 125 ft with SBA and FWW. Patient will benefit from skilled inpatient PT intervention to improve level of functional mobility and compliance with back precautions. Anticipate discharge home once medically cleared by MD. Recommend FWW for ambulation and raised toilet seat for home. Addendum: 11/15/19 at 1332 by GREGORY FRERO PT Amended: Links added.
[2019-11-15 12:00] VITALS: BP 144/83
--- NOTE | 2019-11-15 12:56 | NUR ---
CASE MANAGEMENT: INITIAL REVIEW 69YR OLD FEMALE HERE FOR ELECTIVE SURGERY CC: BACK PAIN SI:L4-5 S-1 STENOSIS 98.2 87 20 144/65 97% ON RA IS:IN SURGERY NOW IV VANCOMYCIN X1 \: 3E MED SURG UNIT PLAN: START ON CLEARS DIET CASE MANAGEMENT:REVIEW 11/15/19 SI:L4-5- S1 BILATERAL LAMINECTOMY AND DECOMPRESSION 98.2 87 20 144/65 97% ON RA IS:IV D5@100ML/HR IV ANCEF TID NEURONTIN PO BID IV DILAUDID Q3HR/PRN COLACE PO BID PEPCID PO BID \: 3E MED SURG UNIT PLAN: CONTROL PAIN START ON REGULAR DIET
[2019-11-15] MEDS ORDERED: HYDROcodone/Acetamin 5/325 tab ORAL SCH (15:12)
[2019-11-15] MEDS ORDERED: HYDROcodone/Acetamin 5/325 tab ORAL PRN (15:12)
[2019-11-15 16:00] VITALS: BP 154/76
--- NOTE | 2019-11-15 16:15 | Progress Note ---
DATE: 11/15/2019 ACUTE PAIN MANAGEMENT PHYSICIAN PROGRESS NOTE SUBJECTIVE: Medication administration record reviewed. Medications include Tylenol, Fioricet, Mylanta, Catapres, Benadryl, Colace, Pepcid, Neurontin, Maxbass, Dilaudid, and Zofran. LABORATORY STUDIES: No interval laboratory studies. OBJECTIVE: Vital signs within normal limits. Afebrile, pulse 65, respirations 20, blood pressure 144/83. Oxygen saturation 98%. I saw the patient at the bedside with the physical therapist. I discussed the case with the nurse, BRENDON Conteh. I also spoke with the surgeon, Dr. Mills, who continues to monitor the patient's lumbar spine wound and drain output. The lumbar spine drain put out 50 mL overnight. This morning from 6 a.m. to , the drain put out another 30 mL. I examined the lumbar spine wound, which appears clean and dry at this time. The patient has been using the p.r.n. Dilaudid with good efficacy. She also has available p.r.n. doses of Maxbass, which will complement this the twice a day gabapentin which she uses chronically. The patient already has plenty of Maxbass at home. I left a prescription for Colace for outpatient usage. The patient is ambulating greater than 300 feet with physical therapy and is advancing her diet. She denies shortness of breath or chest pain. We will continue supportive care at this time. Brandon Brooks M.D. DR: MARTHA JOB#: [id number] CC:
--- NOTE | 2019-11-15 18:02 | Orthopedic Spine Progress Note ---
Ortho Spine - Progress Note Subjective Symptoms: c/o post-op back pain, improved - as compared to pre-op Objective Vital Signs: Last 24 Hour Vital Signs Date Time Temp Pulse Resp B/P (MAP) Pulse Ox O2 Delivery O2 Flow Rate FiO2 11/15/19 16:00 98.2 69 18 154/76 (102) 97 11/15/19 13:36 98.8 11/15/19 12:00 98.5 65 20 144/83 (103) 98 11/15/19 09:00 Nasal Cannula 1.5 11/15/19 08:00 98.8 63 21 142/95 (111) 97 11/15/19 04:00 97.3 57 18 121/76 (91) 99 11/15/19 00:00 97.4 54 16 123/77 (92) 99 11/14/19 21:00 97.7 62 16 120/76 (91) 100 11/14/19 21:00 Nasal Cannula 2.0 11/14/19 20:00 97.4 59 18 119/75 (90) 99 11/14/19 18:55 65 16 113/73 (86) 98 11/14/19 18:25 62 16 110/69 (83) 99 I&O: Intake and Output 11/14/19 11/15/19 19:00 07:00 Intake Total 900 ml 1010 ml Output Total 165 ml 800 ml Balance 735 ml 210 ml Intake IV Total 900 ml 1010 ml Output Urine Total 100 ml 750 ml Drainage Total 15 ml 50 ml Estimated Blood Loss 50 ml # Voids 1 1 Wound: clean, intact Drains: hemovac Neuro Status: unchanged from pre-op Assessment Procedure Performed: L4-s1 laminotomy Plan Plan: PT, pain management, continue drain, discharge plan - in am? Fidel Mills MD Nov 15, 2019 18:02
--- NOTE | 2019-11-15 19:30 | NUR ---
NURSE NOTES: Receive a report from Yady/Eboni Hernandez. Round is done. Pt is awake and alert. Pain on surgery site is 5-6/10. Will provide pain medication as ordered. Uses bedside comode by assist. Noted blood oozing on surgery site. Navin the site. Hemovac is in placed and drained with SS. Call light within reach. Will continue to monitor. Addendum: 11/16/19 at 0136 by Oneyda Roberts RN Noted oozing around Hemo-vac inserted site. Navin the site. Surgery site kept dry and intact with dressing.
--- NOTE | 2019-11-15 19:34 | NUR ---
HAND-OFF: Report given to LINO OLIVAS.
[2019-11-15 20:00] VITALS: BP 159/95
--- NOTE | 2019-11-15 20:10 | Cardiology Progress Note ---
Assessment/Plan Assessment/Plan [id number] Objective Last 24 Hour Vital Signs Date Time Temp Pulse Resp B/P (MAP) Pulse Ox O2 Delivery O2 Flow Rate FiO2 11/15/19 16:00 98.2 69 18 154/76 (102) 97 11/15/19 13:36 98.8 11/15/19 12:00 98.5 65 20 144/83 (103) 98 11/15/19 09:00 Nasal Cannula 1.5 11/15/19 08:00 98.8 63 21 142/95 (111) 97 11/15/19 04:00 97.3 57 18 121/76 (91) 99 11/15/19 00:00 97.4 54 16 123/77 (92) 99 11/14/19 21:00 97.7 62 16 120/76 (91) 100 11/14/19 21:00 Nasal Cannula 2.0 Intake and Output 11/14/19 11/15/19 19:00 07:00 Intake Total 900 ml 1010 ml Output Total 165 ml 800 ml Balance 735 ml 210 ml IV Total 900 ml 1010 ml Output Urine Total 100 ml 750 ml Drainage Total 15 ml 50 ml Estimated Blood Loss 50 ml # Voids 1 1 Macario Jimenez MD Nov 15, 2019 20:10
--- NOTE | 2019-11-15 20:30 | NUR ---
NURSE NOTES: Pain is comfortable level at this time. No S/E noted. Surgery site dressing kept the same as earlier. Will continue to monitor.
--- NOTE | 2019-11-15 21:00 | NUR ---
NURSE NOTES: Pt did use I/S while awake with productive cough. Encourage deep breathing and active coughing as well. Will continue to monitor.
--- NOTE | 2019-11-15 22:00 | Consultation ---
DATE OF CONSULTATION: 11/15/2019 CARDIOLOGY CONSULTATION CONSULTING PHYSICIAN: Macario Jimenez M.D. REFERRING PHYSICIAN: Fidel Mills M.D. REASON FOR REFERRAL: Postoperative medical care. HISTORY OF PRESENT ILLNESS: This is an elderly female, who I am seeing in postoperative consultation by Dr. Mills. The patient underwent spine surgery yesterday. She is doing relatively well. She does not have any chest pain or shortness of breath. No PND. No orthopnea. No palpitations. No dizziness or lightheadedness. She has already had a chance to walk around the halls and she feels much better than prior to surgery, and she basically has not had any major complications. PAST MEDICAL HISTORY: History of small bowel obstruction secondary to hernias. She has a history of appendicitis status post surgery, history of vena cava rupture, status post multiple hernia repairs. She basically had some right distal leg atrophy and weakness, and was found to have the spinal stenosis, needed surgery for which she underwent and she did well. The patient has a history of hepatitis A, history of dengue fever, appendectomy, colonoscopy, questionable history of polycythemia, and history of ventral wall hernia repair. ALLERGIES: She has no known drug allergies. SOCIAL HISTORY: She does not smoke, drink, or abuse drugs. REVIEW OF SYSTEMS: CONSTITUTIONAL: Negative. PULMONARY: Negative. GASTROINTESTINAL: Negative. GENITOURINARY: Negative. NEUROLOGIC: Negative. PHYSICAL EXAMINATION: GENERAL: Shows to be overweight female, in no respiratory distress. VITAL SIGNS: Unremarkable. Blood pressure is anywhere between 121/76 to 154/76, temperature 98.2, and heart rate 69. NECK: Supple. No jugular venous distention. No abdominojugular reflux noted. LUNGS: Clear to auscultation and percussion. CARDIAC: S1 is normal. S2 is normal. Regular rate and rhythm. No heaves, thrills, gallops, or rubs are noted. ABDOMEN: Soft, nontender. Positive bowel sounds. EXTREMITIES: There is no clubbing, cyanosis, or edema. LABORATORY DATA: There are no postoperative labs. ASSESSMENT AND PLAN: 1. Spinal stenosis at L4-L5 and L5-S1, status post right-sided hemilaminectomy. 2. History of hernia repair. 3. History of IVC rupture, status post repair. 4. Mild elevation of blood pressure. This patient was seen in cardiac consultation. The patient is on normal saline, which is likely contributing to her elevated blood pressure. She does not have a history of hypertension previously and does not have significant elevation of blood pressure to warrant treatment at this time. The patient will be followed. DVT prophylaxis with the use of pneumatic compression stockings. Atelectatic prophylaxis with the use of incentive spirometer. The patient looks good and is in good spirits, and hopefully she can go home tomorrow. Macario Jimenez M.D. DR: PETRA JOB#: [id number] CC:
[2019-11-16] VITALS: BP 140/102
[2019-11-16] MEDS: Hydromorphone 0.5mg/0.5ml inj IVP PRN ×3 (00:15→09:12)
--- NOTE | 2019-11-16 00:30 | NUR ---
NURSE NOTES: Assist to use bedside comode. Noted pain level went up. Given pain medication as ordered. Pt feels comfortable. Still noted saturated on Hemo-vac site. Hemo-vac remained unclamp with drained with SS. CN made aware. Will continue to monitor.
--- NOTE | 2019-11-16 03:40 | NUR ---
NURSE NOTES: Receive a call from Dr. Brooks. He is on his way to remove Hemo-vac. Will be given pain medication before removal. Will continue to follow up.
[2019-11-16 04:00] VITALS: BP 143/99
--- NOTE | 2019-11-16 04:15 | NUR ---
NURSE NOTES: Pt had self-voiding at [facility] [place] [facility] and got pain medication. Pain level 2/10. Dr. Brooks came and removed Hemo-Vac. Total output: 5ml. Dressing done with Islet dressing. Kept dry and clean. Dr. Brooks clear for discharge today. Will continue to monitor.
--- NOTE | 2019-11-16 05:30 | Progress Note ---
DATE: 11/16/2019 ACUTE PAIN MANAGEMENT PHYSICIAN PROGRESS NOTE OBJECTIVE: VITAL SIGNS: Afebrile, pulse 91, respirations 21, blood pressure 140/95, and oxygen saturation 96% on room air. LABORATORY STUDIES: No interval laboratory studies. MEDICATIONS: Medication administration record reviewed. Medications include Colace, Pepcid, Neurontin, Fioricet, Catapres, [place], Zofran, Mylanta, Dilaudid, Tylenol, and Benadryl. I saw the patient at bedside with the nurse RN, Oneyda. The patient is in very good spirits. She is able to move in and out of bed without assistance. She has been voiding urine well. She denies any shortness of breath or chest pain. She has been compliant using her incentive spirometer, and has been ambulating greater than 300 feet. I discussed the case with surgeon, Dr. Mills who agrees with discharge trial home today. We are awaiting for the output from the indwelling lumbar spine drain catheter to decrease in volume. That volume has decreased. Yesterday's day shift was only 50 mL and the overnight volume has been much less. The patient was moved to the sitting position where I examined the lumbar spine wound. I removed the dressing showing the incision line clean and dry with DuraBond sealant intact. The drain hole site appeared clean and dry as well. I removed the Steri-Strips holding in the indwelling lumbar spine drain catheter. Then with the Hemovac drain taken off of suction, and at the end-expiration, I personally removed the indwelling lumbar spine drain catheter. The tip was intact. Alcohol swab was applied generously to the drain hole site and along the incision line. Finally, sterile 4 x 4 gauze was then applied over the drain hole site and over the incision line followed by island bordered gauze dressing. There were no complications. I have left a prescription for 50 tablets of [place] 10/325. The hydrocodone has been working very well for analgesia and she will continue this dosing here in the hospital and at home. The patient states that her lower extremity radicular symptoms have improved as well surgery. She will continue her chronic b.i.d. Neurontin dosing. Brandon Brooks M.D. DR: LOLIS JOB#: [id number] CC:
--- NOTE | 2019-11-16 07:45 | NUR ---
HAND-OFF: Report given to BRENDON Ann. Round is done.
--- NOTE | 2019-11-16 07:47 | NUR ---
NURSE NOTES: Received patient in bed awake. No SOB or acute distress. IV line intact. Wound dressing dry and intact. For discharge today. HOB elevated. Bed locked in lowest position. Call light within reach. Will continue plan of care.
[2019-11-16 08:00] VITALS: BP 144/104
[2019-11-16] MEDS: Docusate 100mg cap ORAL SCH (09:12)
--- NOTE | 2019-11-16 09:40 | NUR ---
Discharge planning: Sent DME request over to: Ziyad Roe F: [phone]
[2019-11-16] MEDS ORDERED: COLACE100 MG ORAL (09:52)
[2019-11-16] MEDS ORDERED: NORCO 10-325 T1 EACH ORAL (09:53)
[2019-11-16] MEDS ORDERED: D5 1/2NS 1000ml IV ONE (10:18)
[2019-11-16] MEDS ORDERED: Tubing IV Secondary IV ONE (10:18)
--- NOTE | 2019-11-16 10:30 | NUR ---
NURSE NOTES: Patient discharged to home in stable condition. Belongings accounted for. IV line removed. ID band removed. Discharge instructions given, verbalized understanding. Wheeled down to lobby, picked up by family.
--- NOTE | 2019-11-18 11:42 | Discharge Summary ---
Discharge Summary Hospital Course Date of Admission Nov 14, 2019 at 11:15 Date of Discharge Nov 16, 2019 at 10:19 Admitting Diagnosis Spinal stenosis with anterolisthesis. Reason for Hospitalization: Elective surgery HPI Doris Batres is a 69 year old female who was admitted on Nov 14, 2019 at 11:15 for Subluxation Stenosis Of Intervertebral Foramina Consultations Dr Jimenez -IM/cardio Dr Brooks -pain specialist Procedures s/p 11/14/[address] Mills 1. Right-sided hemilaminectomy, L4-L5, L5-S1. 2. Left-sided laminectomy, L4-L5 through a right-sided approach. 3. Diskectomy, L4-L5, right side. 4. Neurolysis, L4-L5. 5. Partial facetectomy, right side, L4-5. 6. Use of operating microscope. 7. Neurodiagnostic monitoring. Hospital Course status post surgery course of recovery uneventful initially IV fluids s/p perioperative antibiotics initially with Hemovac drain, output closely monitored neurovascular status closely monitored, remained stable incision clean , dry and intact pain management was addressed pain specialist followed; pain was controlled remained hemodynamically stable ambulated with PT fall precautions maintained; safe for ambulation DVT prophylaxis provided use of incentive spirometry was encouraged while in the bed tolerated diet , IV fluids discontinued GI prophylaxis provided antiemetics were on board as needed voided freely bowel regimen instituted Hemovac was discontinued patient was stable for discharge discharge instructions provided follow up with surgeon in the office as advised by surgeon FINAL DIAGNOSES 1. Spinal stenosis, L4-L5 central with anterolisthesis. 2. L5-S1 spinal stenosis 3. s/p L4-s1 laminotomy 4. History of IVC rupture, s/p repair Discharge Medications Continued Medications: Docusate Sodium* (Colace*) 100 Mg Capsule 100 MG ORAL TWICE A DAY for stool softener, #50 CAP (This prescription has been renewed) Gabapentin* (Gabapentin*) 300 Mg Capsule 600 MG ORAL BID for nerve pain , CAP Hydrocodone Bit/Acetaminophen 10-325* (Dennis 10-325*) 1 Each Tablet 1 TAB ORAL Q4H PRN for For Pain, #50 TAB 0 Refills (This prescription has been renewed) PRN PAIN Discontinued Medications: Docusate Sodium* (Colace*) 100 Mg Capsule 100 MG ORAL DAILY for scheduled, #60 CAP Hydrocodone Bit/Acetaminophen 5-325* (Dennis 5-325*) 1 Each Tablet 1 TAB ORAL Q6H PRN for For Pain, #30 TAB 0 Refills Discharge Condition Upon Discharge: stable Discharge Vital Signs Last Vital Signs Date Time Temp Pulse Resp B/P (MAP) Pulse Ox O2 Delivery O2 Flow Rate FiO2 11/16/19 08:00 98.3 80 21 144/104 (117) 96 11/15/19 21:00 Room Air 11/15/19 09:00 1.5 Discharge Disposition Patient was discharged to Home (01) Discharge Instructions Discharge Instructions Special Instructions I have been assigned to complete a D/C Summary on this account. I was not involved in the patient management Margarita Monreal NP Nov 18, 2019 11:42
== END 2019-11-16 10:19 | disposition home or self-care (01) | DRG 520 ==
LOC: SDSOVERFLO 11:15 → 3E 17:55
DX: M48.061 Spinal stenosis, lumbar region without neurogenic claudication (principal); M54.16 Radiculopathy, lumbar region; E78.5 Hyperlipidemia, unspecified; M43.16 Spondylolisthesis, lumbar region; G62.9 Polyneuropathy, unspecified; R73.9 Hyperglycemia, unspecified
CPT/HCPCS: 36415; 72020; 76000; 86850; 86900; 86901; 87081; 94003; 94150